=== PATIENT | female | born 1960 | race Caucasian/White ===

== ENCOUNTER → 2019-03-08 | Outpatient (CLI) | payer MEDICARE, OTHER ==
[2019-03-08 10:54] VITALS: BP 155/86; PULSE 65; RESP 16; TEMP 98.2
== END | disposition home or self-care (01) ==
LOC: PROCWHC3 10:22
PROVIDERS: ATTEND Nurse Practitioner Family
DX: Z46.82 Encounter for fitting and adjustment of non-vascular catheter (principal); C7A.090 Malignant carcinoid tumor of the bronchus and lung; C71.9 Malignant neoplasm of brain, unspecified; C22.7 Other specified carcinomas of liver
CPT/HCPCS: 96523; J1642

== ENCOUNTER → 2019-03-31 | Outpatient (CLI) | payer MEDICARE, OTHER ==
--- NOTE | 2019-03-31 16:24 | CT ---
EXAMINATION TYPE: CT ChestAbdPelvis w con DATE OF EXAM: 03/31/2019 COMPARISON: Outside study 12/15/2018 HISTORY: Hx lung ca. Pt also hx abdominal aneurysm, tumors on brain and liver CT DLP: 1061 mGycm CONTRAST: CT scan of the chest, abdomen and pelvis is performed with Oral Contrast and with IV Contrast, patien t injected with 100 mL of Isovue 300. CT Chest: LUNGS: The lungs are clear and free of infiltrate or atelectasis. Calcified granulomas noted througho ut both lung reeder. Partially calcified nodular density in the left upper lobe measuring 1 cm reflec t site of known neoplasm. Recurrent disease is not excluded. Finding is unchanged relative to prior e xamination. No pleural effusion or CT evidence of interstitial lung disease. MEDIASTINUM: Thoracic aorta is of normal caliber. The heart is not enlarged. No evidence for media stinal mass or adenopathy. HILAR STRUCTURES: Calcified hilar lymph nodes. No evidence for mass. No hilar adenopathy is apprecia jaida. OTHER: No significant abnormality. CONTRAST CT ABDOMEN AND PELVIS FINDINGS: LIVER/GB: Cholecystectomy clips noted. Approximately 3 calcified lesions are noted within the liver L 1 is identified anterior segment left hepatic lobe measuring 2.1 cm with the 2 or 3 additional lesion s seen within the left hepatic lobe measuring up to 1.8 cm. Calcified metastases are considered. Bili sanju tree is of normal caliber. PANCREAS: No inflammation. No distinct mass. SPLEEN: No splenic enlargement. No lesion seen. ADRENALS: No nodule. No thickening. KIDNEYS/BLADDER: No hydronephrosis. No nephrolithiasis. No distinct renal mass. BOWEL: Normal appendix. Normal bowel caliber. No inflammation. GENITAL ORGANS: No gross abnormality. LYMPH NODES: No greater than 1cm abdominal or pelvic lymph nodes are appreciated. AORTA: The abdominal aorta is aneurysmal and thrombosed at and just distal to the level of the renal arteries which are patent. SMA and celiac axis are patent. Thrombosed abdominal aorta and iliac vesse ls noted with reconstitution into the common femoral arteries bilaterally. Abdominal aorta measures a pproximately 3 cm. OSSEOUS STRUCTURES: No significant abnormality is seen. OTHER: No significant additional abnormality is seen. IMPRESSION: 1. Slightly calcified masses within the liver are suspicious for metastatic disease. Site of origin i s indeterminate. 2. Leriche syndrome 3. Evidence of remote granulomatous disease of the kidneys and spleen. 4. Partially calcified nodular density in the left upper lobe measuring 1 cm reflect site of known ne oplasm. Recurrent disease is not excluded. Finding is unchanged relative to prior examination.
--- NOTE | 2019-04-01 06:58 | MR ---
EXAMINATION TYPE: MR brain wo/w con DATE OF EXAM: 03/31/2019 COMPARISON: Outside brain MRI 12/14/2018 HISTORY: 58-year-old female follow-up, Lung ca, mets TECHNIQUE: Multiplanar, multisequence images of the brain and brainstem were acquired before and aft er administration of 5.5 mL IV Gadavist. Diffusion weighted imaging is performed. FINDINGS: Redemonstrated ovoid left frontal lobe mass measuring 2.7 cm AP by 1.9 cm craniocaudal by 1.6 cm wide . Previously, this measured 2.7 x 1.7 x 1.8 cm. Overall unchanged from 12/14/2018. The lesion demonstrates heterogeneous bright T1 signal and irregular peripheral enhancement. There is some susceptibility artifact along the rim of the lesion suggesting hemosiderin deposition. Mild increased T2/FLAIR signal along the posterior margin was not as well-demonstrated previously. T2/FLAIR weighted sequences otherwise shows stable mild to moderate scattered bright white matter marcus nge within the deep and periventricular regions of both cerebral hemispheres. Dural venous sinuses are patent. No additional enhancing intracranial lesions. An 8 mm wide by 5 mm craniocaudal hypoenhancing lesion centered within the pituitary gland is noted. In retrospect, this seems to been present previously as well. No evidence for acute infarction, midline shift, herniation, effacement of basal cisterns, or extra-a xial fluid collection. The ventricles and sulci are age-appropriate. Major intracranial flow voids are intact. The craniocervical junction is normal. Some trapped fluid noted within the right mastoid air cells. Globes are intact. IMPRESSION: 1. Essentially stable 2.7 x 1.9 x 1.6 cm ovoid left frontal lobe mass continues to show some intrinsi c bright T1 signal and irregular rim enhancement. There is also a hemosiderin rim suggesting old bloo d products. No mass effect or midline shift. 2. There is mild bright T2 signal along the posterior margin of the mass that could represent mild va sogenic edema, not as well-seen previously. 3. An 8 x 5 mm hypoenhancing lesion centered within the pituitary gland was present previously in ret rospect as well. Microadenoma and Rathke's cleft cyst are differential considerations. Dedicated imag ing evaluation and laboratory assessment as clinically indicated. 4. No acute intracranial abnormality seen. 5. Trapped fluid in right mastoid air cells. Correlate for any mastoid pain to exclude mastoiditis
== END | disposition home or self-care (01) ==
LOC: RADPROMAIN 13:20
PROVIDERS: ATTEND Internal Medicine Hematology & Oncology
DX: I74.09 Other arterial embolism and thrombosis of abdominal aorta (principal); R91.1 Solitary pulmonary nodule; D71 Functional disorders of polymorphonuclear neutrophils; K76.89 Other specified diseases of liver
CPT/HCPCS: 71260; 74177; 70553; J1642; A9585; Q9967

== ENCOUNTER → 2019-05-12 | Outpatient (CLI) | payer MEDICARE, OTHER ==
[~2019-05-12] MED LIST: SODIUM CHLORIDE 0.9% 500 ML 500 ML in EMPTY BAG 1 BAG IV PRN
[2019-05-12 11:04] VITALS: BP 146/80; PULSE 62; RESP 16; TEMP 97.9
== END | disposition home or self-care (01) ==
LOC: PROCWHC3 10:43
PROVIDERS: ATTEND Nurse Practitioner Family
DX: Z46.82 Encounter for fitting and adjustment of non-vascular catheter (principal); C7A.090 Malignant carcinoid tumor of the bronchus and lung; C71.9 Malignant neoplasm of brain, unspecified; C22.7 Other specified carcinomas of liver
CPT/HCPCS: 96523; J1642

== ENCOUNTER → 2019-06-23 | Outpatient (CLI) | payer MEDICARE, OTHER ==
[2019-06-23 10:38] VITALS: BP 154/91; PULSE 66; RESP 16; TEMP 97.9
== END | disposition home or self-care (01) ==
LOC: PROCWHC3 10:30
PROVIDERS: ATTEND Nurse Practitioner Family
DX: Z46.82 Encounter for fitting and adjustment of non-vascular catheter (principal)
CPT/HCPCS: 96523; J1642

== ENCOUNTER → 2019-07-13 | Outpatient (CLI) | payer MEDICARE, OTHER ==
--- NOTE | 2019-07-13 12:41 | CT ---
EXAMINATION TYPE: CT ChestAbdPelvis w con DATE OF EXAM: 07/13/2019 COMPARISON: 03/31/2019 and 12/15/2018 HISTORY: 58 year-old female follow-up Lung cancer, C34.12 TECHNIQUE: Contiguous axial scanning of the chest, abdomen, and pelvis performed with IV Contrast, pa tient injected with 100 ml mL of Isovue 300. Delayed images through the kidneys were obtained. Espino l/sagittal reconstructions performed. CT DLP: 1111 mGycm Automated exposure control for dose reduction was used. FINDINGS: CHEST: Left anterior chest wall injection port with catheter tip at the upper SVC. Heart normal size with stable small anterior pericardial effusion. Aorta normal caliber with conventional arch vessel branching anatomy. Stable 6 mm hypodense nodule left lobe of the thyroid gland. No thoracic lymphadenopathy by CT size c riteria. Numerous bilateral calcified granulomas. Irregular density within the left midlung measures 1.2 cm and is partially calcified. This previously measured 1.4 cm on 12/15/2018 and may reflect site of treated disease. No new suspicious pulmonary nodule. No consolidation or pleural effusion. ABDOMEN: Partially calcified hepatic lesions are redemonstrated, a couple along the mid hepatic dome measure t o 1.8 cm, unchanged. A lesion along the right hepatic dome measures 2.3 cm versus 2.4 cm, previously, possibly minimally smaller. Portal venous system is patent. No biliary ductal dilatation. Cholecystectomy clips. Left adrenal nodularity and thickening is stable back to 12/15/2018. Infrarenal abdominal aortic aneurysm measuring 3.3 cm with a occlusion of the abdominal aorta just be low the takeoff of the renal arteries. There is reconstitution at the distal common iliac arteries. C alcified granulomas within the spleen. Pancreas appears within normal limits. There is an elongated 9 mm calculus within the left renal pelvis. Mild urothelial thickening on the l eft. 2 nonobstructive left renal calculi measuring up to 7 mm.. 2 nonobstructive right renal calculi measuring up to 5 mm. No dilated small bowel, free fluid, or free air. No mesenteric or retroperitoneal lymphadenopathy. No significant stool burden. PELVIS: Bladder partially urine distended. Pelvic phleboliths. Uterus surgically absent. Both ovaries are vis ualized. No abnormal fluid collection in the pelvis or pelvic lymphadenopathy. BONES: Areas of serpiginous sclerosis within the left femoral head compatible with AVN. No subarticular derek apse. No osseous destructive process. IMPRESSION: 1. PARTIALLY CALCIFIED IRREGULAR DENSITY LEFT MIDLUNG MEASURES 1.2 CM, SLIGHTLY SMALLER FROM 12/15/2018 WHERE IT MEASURED 1.4 CM. CORRELATE FOR SITE OF TREATED DISEASE. 2. APPROXIMATELY 3 PARTIALLY CALCIFIED HEPATIC LESIONS REDEMONSTRATED, LARGELY STABLE. THE ONE IN THE RIGHT HEPATIC DOME MAY BE MINIMALLY SMALLER AT 2.3 CM (VERSUS 2.4 CM, PREVIOUSLY). 3. LEFT ADRENAL THICKENING AND NODULARITY IS STABLE. 4. REDEMONSTRATED LERICHE SYNDROME. 5. BILATERAL NONOBSTRUCTIVE RENAL CALCULI. NOTE THAT A 9 MM CALCULUS HAS PASSED INTO THE LEFT RENAL P ARELY. THERE IS CORRESPONDING MILD UROTHELIAL THICKENING SUGGESTING ASSOCIATED INFLAMMATION. CORRELAT E TO EXCLUDE URINARY TRACT INFECTION. 6. NUMEROUS CALCIFIED PULMONARY NODULES COMPATIBLE WITH PRIOR GRANULOMATOUS DISEASE. ADDITIONAL CALCI FIED GRANULOMAS IN THE SPLEEN. 7. LEFT FEMORAL HEAD AVN REDEMONSTRATED. NO SUBARTICULAR COLLAPSE.
--- NOTE | 2019-07-13 12:54 | MR ---
EXAMINATION TYPE: MR brain wo/w con DATE OF EXAM: 07/13/2019 COMPARISON: Prior MRI brain March 31, 2019 and outside study December 14, 2018. HISTORY: Headaches, lung ca TECHNIQUE: Multiplanar, multisequence images of the brain and brainstem is performed without and with IV contras t, utilizing 5.5 mL intravenous Gadavist . FINDINGS: Diffusion weighted images demonstrate no evidence of a recent infarct or other diffusion ab normality. There is no worrisome extra-axial fluid collection. The ventricular system and cisternal spaces remain normal in size and appearance. The brain volume is age appropriate. Scattered foci of T2 hyperintensity throughout the white matter most prominent periventricular levels is again seen. Midline structures demonstrate normal morphology. The craniocervical junction appears within normal limits. The dural venous sinuses remain patent. The visualized sinuses are clear and the globes are intact. Persistent opacity or fluid signal right mastoid air cells. Persistent oval heterogeneous rim-enhancing left frontal mass measuring approximately 2.0 cm cranioca udal dimension coronal image 27 x 2.3 cm AP diameter by 2.2 cm transversely axial image 43. Lesion sh ows T1 hyperintensity and fairly isointense to ruiz matter on T2-weighted images with persistent susc eptibility artifact along the rim. Some adjacent vasogenic edema surrounding deeper and posterior tis josephine FLAIR image 18 is more prominent versus last 2 studies. Persistent ovoid area of nonenhancement p osterior inferior sella turcica sagittal image 79 for reference is redemonstrated. No new enhancing m asses are present. IMPRESSION: Fairly stable size nonspecific left frontal rim-enhancing mass. Increasing local mass eff ect or adjacent vasogenic edema is noted. No new enhancing lesions are seen.
== END | disposition home or self-care (01) ==
LOC: RADMRIMAIN 09:16
PROVIDERS: ATTEND Internal Medicine Hematology & Oncology
DX: N20.0 Calculus of kidney (principal); J98.4 Other disorders of lung; D73.89 Other diseases of spleen; K76.9 Liver disease, unspecified; C34.12 Malignant neoplasm of upper lobe, left bronchus or lung; Z88.1 Allergy status to other antibiotic agents
CPT/HCPCS: 70553; 71260; 74177

== ENCOUNTER → 2019-08-13 | Outpatient (CLI) | payer MEDICARE, OTHER ==
[2019-08-13 11:13] VITALS: BP 156/90; PULSE 54; RESP 16; TEMP 98.3
== END | disposition home or self-care (01) ==
LOC: PROCWHC3 10:36
PROVIDERS: ATTEND Nurse Practitioner Family
DX: C71.9 Malignant neoplasm of brain, unspecified (principal); C7A.090 Malignant carcinoid tumor of the bronchus and lung; C22.7 Other specified carcinomas of liver; Z46.82 Encounter for fitting and adjustment of non-vascular catheter
CPT/HCPCS: 96523

== ENCOUNTER → 2019-09-24 | Outpatient (CLI) | payer MEDICARE, OTHER ==
[2019-09-24 11:18] VITALS: BP 127/60; PULSE 56; RESP 16; TEMP 98.2
== END | disposition home or self-care (01) ==
LOC: PROCWHC3 10:45
PROVIDERS: ATTEND Nurse Practitioner Family
DX: Z46.82 Encounter for fitting and adjustment of non-vascular catheter (principal); C7A.090 Malignant carcinoid tumor of the bronchus and lung; C71.9 Malignant neoplasm of brain, unspecified; C22.7 Other specified carcinomas of liver
CPT/HCPCS: 96523; J1642

== ENCOUNTER → 2019-10-18 | Outpatient (CLI) | payer MEDICARE, OTHER ==
--- NOTE | 2019-10-18 15:54 | CT ---
EXAMINATION TYPE: CT ChestAbdPelvis w con DATE OF EXAM: 10/18/2019 COMPARISON: 07/13/2019 and 03/31/2019 HISTORY: 59 year-old female history of Lung cancer TECHNIQUE: Contiguous axial scanning of the chest, abdomen, and pelvis performed with IV Contrast, pa tient injected with 100 mL of Isovue 300. Delayed images through the kidneys were obtained. Coronal/s agittal reconstructions performed. CT DLP: 618.20 mGycm Automated exposure control for dose reduction was used. FINDINGS: CHEST: Left anterior chest wall injection port with catheter tip at the upper SVC. Heart normal size with stable small anterior pericardial effusion. Aorta normal caliber with conventional arch vessel branching anatomy. Stable 6 mm hypodense nodule left lobe of the thyroid gland. No thoracic lymphadenopathy by CT size criteria. Numerous bilateral calcified granulomas. Redemonstrated is irregular, partially calcified density wit hin the left midlung measuring 1.2 cm, unchanged from prior. No new suspicious pulmonary nodule. No consolidation or pleural effusion. ABDOMEN: 3 partially calcified hepatic lesions are redemonstrated, couple along the left hepatic dome measurin g up to 1.8 cm and one within the right liver lobe. This is the largest measuring 2.3 cm, unchanged. Portal venous system is patent. No biliary ductal dilatation. Cholecystectomy clips. Left adrenal nodularity and thickening remains unchanged. Infrarenal abdominal aortic aneurysm measuring 3.3 cm with redemonstration of occlusion of the abdomi nal aorta just below the takeoff of the renal arteries. There is reconstitution at the distal externa l iliac arteries. Calcified granulomas within the spleen. Pancreas appears within normal limits. The lung gated calcification in the left renal pelvis has increased in size now measuring 1.3 cm vers us 9 mm, previously. Continued urothelial thickening now with mild proximal left ureteral prominence. Unable to exclude a stricture at the UPJ, reference axial image 69 and 70. Additional nonobstructive bilateral renal calculi measuring up to 1 cm on the left and 1.1 cm on the right. No dilated small bowel, free fluid, or free air. No mesenteric or retroperitoneal lymphadenopathy. The cecum is low hanging in the right side of the pelvis with oral contrast progressed to this level. Scattered [id number] stool. No pericolonic inflammatory change. PELVIS: Bladder partially urine distended. Pelvic phleboliths. Uterus surgically absent. Right ovary not verna rly delineated from adjacent bowel. No abnormal fluid collection in the pelvis or pelvic lymphadenopa thy. BONES: Areas of serpiginous sclerosis within the left femoral head compatible with AVN. No subarticular derek apse. No osseous destructive process. IMPRESSION: 1. STABLE 1.2 CM PARTIALLY CALCIFIED LEFT MIDLUNG NODULE, LIKELY SITE OF TREATED DISEASE. BACKGROUND OF PRIOR GRANULOMATOUS DISEASE. 2. 3 PARTIALLY CALCIFIED HEPATIC LESIONS MEASURING UP TO 2.3 CM ARE ALSO UNCHANGED. 3. LEFT ADRENAL THICKENING AND NODULARITY REMAINS STABLE. 4. REDEMONSTRATED LERICHE SYNDROME. 5. THE PREVIOUS CALCULUS IN THE LEFT RENAL PELVIS HAS INCREASED TO 1.2 CM AND THERE IS PERSISTING URO THELIAL THICKENING THAT COULD BE REACTIVE DUE TO INFLAMMATION OR COULD REPRESENT URINARY TRACT INFECT ION. UNABLE TO EXCLUDE THE DEVELOPMENT OF A FOCAL UPJ STENOSIS THE APPEARANCE OF SOME POSSIBLE NARROW ING HERE. 6. LEFT FEMORAL HEAD AVN REDEMONSTRATED. NO SUBARTICULAR COLLAPSE.
== END | disposition home or self-care (01) ==
LOC: RADPROMAIN 12:06
PROVIDERS: ATTEND Internal Medicine Hematology & Oncology
DX: D71 Functional disorders of polymorphonuclear neutrophils (principal); R91.1 Solitary pulmonary nodule; K76.9 Liver disease, unspecified; E27.8 Other specified disorders of adrenal gland; I74.09 Other arterial embolism and thrombosis of abdominal aorta; N20.0 Calculus of kidney; N39.8 Other specified disorders of urinary system; M87.852 Other osteonecrosis, left femur; C34.12 Malignant neoplasm of upper lobe, left bronchus or lung; Z88.1 Allergy status to other antibiotic agents
CPT/HCPCS: 71260; 74177; J1642; Q9967 ×2

== ENCOUNTER → 2019-10-18 | Outpatient (CLI) | payer MEDICARE, OTHER ==
--- NOTE | 2019-10-18 14:17 | MR ---
EXAMINATION TYPE: MR brain wo/w con DATE OF EXAM: 10/18/2019 COMPARISON: 07/13/2019 HISTORY: Lung CA, mets TECHNIQUE: Multiplanar, multisequence images of the brain and brainstem is performed without and with IV contras t, utilizing 5.5 mL intravenous Gadavist . FINDINGS: There is redemonstration of a T1 precontrast hyperintense and T2, isointense intra-axial le ft frontal lobe mass with peripheral T2 hypointensity indicating rim hemosiderin deposition. This is also rim-enhancing and measures 2.3 x 2.2 x 2.3 cm and transverse by anterior posterior by craniocaud al dimension when measured in a similar fashion to the prior exam of 07/13/2019. There is only minimal surrounding vasogenic edema seen. Diffusion weighted images demonstrate no evidence of a recent infarct or other diffusion abnormality. There is no extra-axial fluid. Old foci of T2/FLAIR hyperintensity are scattered throughout the per iventricular and subcortical white matter. The ventricular system and cisternal spaces are normal in size and appearance. The brain volume is age appropriate. Midline structures demonstrate normal morphology. The craniocervical junction appears within normal limits. The dural venous sinuses appear patent. The globes are intact. There is partial opacification of the right mastoid air cells. Left mastoid air cells are well aerated. Scant mucosal thickening is seen in the ethmoid sinuses. Remaining paranasal sinuses are well aerated. Left vertebral artery is noted to be dominant. Incidentally noted leftward nasal septal deviation. IMPRESSION: Stable size of the rim-enhancing left frontal metastatic lesion with similar mild surroun ding vasogenic edema. No progression in mass effect. No new enhancing intracranial lesions.
== END | disposition home or self-care (01) ==
LOC: RADMRIMAIN 12:00
PROVIDERS: ATTEND Internal Medicine Hematology & Oncology
DX: C71.9 Malignant neoplasm of brain, unspecified (principal); C34.12 Malignant neoplasm of upper lobe, left bronchus or lung
CPT/HCPCS: 70553; A9585

== ENCOUNTER → 2019-11-29 | Outpatient (CLI) | payer MEDICARE, OTHER ==
[2019-11-29 11:12] VITALS: BP 135/84; PULSE 55; RESP 18; TEMP 98.2
== END | disposition home or self-care (01) ==
LOC: PROCWHC3 10:49
PROVIDERS: ATTEND Nurse Practitioner Family
DX: Z46.82 Encounter for fitting and adjustment of non-vascular catheter (principal); C7A.090 Malignant carcinoid tumor of the bronchus and lung; C71.9 Malignant neoplasm of brain, unspecified; C22.7 Other specified carcinomas of liver; E31.20 Multiple endocrine neoplasia [MEN] syndrome, unspecified
CPT/HCPCS: 96523; J1642

== ENCOUNTER → 2020-01-10 | Outpatient (CLI) | payer MEDICARE, OTHER ==
[2020-01-10 11:15] VITALS: BP 154/85; PULSE 65; RESP 18; TEMP 98.6
== END | disposition home or self-care (01) ==
LOC: PROCWHC3 10:56
PROVIDERS: ATTEND Nurse Practitioner Family
DX: Z46.82 Encounter for fitting and adjustment of non-vascular catheter (principal); C7A.090 Malignant carcinoid tumor of the bronchus and lung; C71.9 Malignant neoplasm of brain, unspecified; C22.7 Other specified carcinomas of liver
CPT/HCPCS: 96523; J1642

== ENCOUNTER → 2020-02-14 | Outpatient (CLI) | payer MEDICARE, OTHER ==
--- NOTE | 2020-02-14 12:07 | MR ---
EXAMINATION TYPE: MR brain wo/w con DATE OF EXAM: 02/14/2020 11:57 AM COMPARISON: 10/18/2019 HISTORY: Lung cancer / Known Brain mets, Follow up Study CONTRAST: Patient received 5.5 mL intravenous Gadavist gadolinium contrast. Multiplanar and multispin-echo imaging of the brain was performed . Pre and post contrast enhanced i mages are obtained. The ventricles, basal cisterns and sulci overlying the cerebral convexities are mildly enlarged. There is evidence of mild periventricular white matter ischemic demyelination. Remote deep white matter insults are also noted. No acute edema is seen on diffusion weighted imaging. There is no evidence for midline shift or mass effect. Acute intracranial hemorrhage or extra-axial collection is not evident. Left frontal lesion is again noted with a peripheral rim enhancement and currently measures approxima tely 2.3 x 1.7 cm versus 2.3 x 2.2 cm previously. There is stable bulbous appearance to the right por tion of the saima inferiorly measuring 1.1 cm with vague enhancement. This may reflect an additional l esion unchanged from prior examination. The paranasal sinuses and mastoid air cells are well-aerated. IMPRESSION: 1. Essentially stable left frontal lesion as well as suspected lesion involving the right portion of the saima as discussed above.
== END | disposition home or self-care (01) ==
LOC: RADMRIMAIN 10:55
PROVIDERS: ATTEND Internal Medicine Hematology & Oncology
DX: G93.89 Other specified disorders of brain (principal); C34.12 Malignant neoplasm of upper lobe, left bronchus or lung
CPT/HCPCS: 70553; A9585

== ENCOUNTER → 2020-02-14 | Outpatient (CLI) | payer MEDICARE, OTHER ==
--- NOTE | 2020-02-14 15:04 | CT ---
EXAMINATION TYPE: CT ChestAbdPelvis w con DATE OF EXAM: 02/14/2020 COMPARISON: Prior CT 10/18/2019 HISTORY: Lung cancer. CT DLP: 490.3 mGycm Automated exposure control for dose reduction was used. CONTRAST: CT scan of the chest, abdomen and pelvis is performed with Oral Contrast and with IV Contrast, patien t injected with 100 mL of Isovue M300. FINDINGS: LUNGS: The lungs are remarkable for stable nodularity, probable old granulomatous disease. There is no pleural effusion or pneumothorax seen. The tracheobronchial tree is patent. MEDIASTINUM: There are no greater than 1 cm hilar or mediastinal lymph nodes. No pericardial effusi on is seen. AORTA: No significant interval change is seen, infrarenal abdominal aorta is occluded as on prior. OTHER: No additional significant abnormality is seen. LIVER/GB: No significant interval change is appreciated. There are calcified foci within the liver as on prior. Patient is post cholecystectomy. PANCREAS: No significant abnormality is seen. SPLEEN: No significant abnormality is seen. ADRENALS: No significant interval change is seen. KIDNEYS: No significant interval change is seen. There is abnormal appearance of the renal pelvis, th ickening of the urothelium, there is a calcified stone present in the renal pelvis, nonobstructive re nal calculi are present bilaterally as on prior. REPRODUCTIVE ORGANS: No gross abnormality seen. BOWEL: No significant abnormality is seen. FREE AIR: No Free Air visible. ASCITES: None seen. RETROPERITONEAL ADENOPATHY: No retroperitoneal adenopathy is seen. LYMPH NODES: No greater than 1 cm abdominal or pelvic lymph nodes are appreciated. URINARY BLADDER: No significant abnormality is seen. PELVIC ADENOPATHY: None visualized. OSSEOUS STRUCTURES: No significant interval change is seen. IMPRESSION: Essentially stable exam.
== END | disposition home or self-care (01) ==
LOC: RADPROMAIN 11:02
PROVIDERS: ATTEND Internal Medicine Hematology & Oncology
DX: C34.12 Malignant neoplasm of upper lobe, left bronchus or lung (principal); Z88.1 Allergy status to other antibiotic agents
CPT/HCPCS: 71260; 74177; J1642; Q9967 ×2; 70553

== ENCOUNTER → 2020-06-12 | Outpatient (CLI) | payer MEDICARE, OTHER ==
[2020-06-12 12:00] LABS: African American GFR (CKD) >90 (>60 ml/min/1.73 sqM); Blood Urea Nitrogen 12 mg/dL (7-17); Non-African American GFR(CKD) 84 (>60 ml/min/1.73 sqM)
--- NOTE | 2020-06-13 21:42 | CT ---
EXAMINATION TYPE: CT ChestAbdPelvis w con DATE OF EXAM: 06/12/2020 COMPARISON: CT chest abdomen pelvis 02/14/2020 HISTORY: Lung cancer. Brain metastases. CT DLP: 459.90 mGycm Automated exposure control for dose reduction was used. CONTRAST: CT scan of the chest, abdomen and pelvis is performed with Oral Contrast and with IV Contrast, patien t injected with 100 ml mL of Isovue 300. FINDINGS: LUNGS: Numerous calcified pulmonary nodules redemonstrated. No new concerning parenchymal mass or nod ule identified. No pleural effusion. No pneumothorax. The tracheobronchial tree is patent. MEDIASTINUM/SOFT TISSUES: Left-sided MediPort. No axillary, hilar, or mediastinal lymphadenopathy gre ater than 1 cm. Calcified nonenlarged mediastinal and bihilar lymph nodes. Cardiac size is normal. Ca lcified coronary artery disease. No pericardial effusion. No thoracic aortic aneurysm. LIVER: Redemonstrated coarse round calcified lesion of the liver. No new hepatic lesion. BILIARY SYSTEM: Status post cholecystectomy. No intrahepatic or extrahepatic biliary ductal dilatatio n. PANCREAS: Normal. SPLEEN: Calcified granulomas of the spleen. ADRENALS: There is unchanged thickening of the left adrenal gland. Right adrenal gland normal. KIDNEYS: Bilateral renal calculi are redemonstrated. There is no right hydronephrosis. There is redem onstrated 13 mm calculus within the left renal pelvis with urothelial thickening of the renal collect ing system and proximal left ureter, and mild to moderate left hydronephrosis. BOWEL: No obstruction or thickening. PERITONEUM: No pneumoperitoneum. No free fluid. LYMPH NODES: No lymphadenopathy. PELVIS: Normal urinary bladder. Status post hysterectomy. VASCULATURE: There is unchanged occluded multifocal infrarenal abdominal aortic aneurysm, measuring up to 2.5 x 3.3 cm AP and transverse at the level of the renal arteries (4:65), and the distal infrar enal abdominal aorta measures up to 2.7 x 2.8 cm AP and transverse (4:73). MUSCULOSKELETAL: Sclerotic foci of right rib 7 unchanged. Avascular necrosis of the left femoral hea d redemonstrated. IMPRESSION: 1. Redemonstrated calcified pulmonary nodules. No new pulmonary nodules or lymphadenopathy of the ch est. 2. Unchanged calcified lesions of the liver. 3. Unchanged left adrenal thickening. 4. Bilateral nephrolithiasis. Redemonstrated 13 mm calculus within the left renal pelvis, with persi stent urothelial thickening and mild to moderate left hydronephrosis. 5. Redemonstrated Leriche syndrome.
== END | disposition home or self-care (01) ==
LOC: RADCTMAIN 09:35
PROVIDERS: ATTEND Internal Medicine Hematology & Oncology
DX: K76.89 Other specified diseases of liver (principal); E27.8 Other specified disorders of adrenal gland; N20.0 Calculus of kidney; C34.12 Malignant neoplasm of upper lobe, left bronchus or lung; Z88.1 Allergy status to other antibiotic agents
CPT/HCPCS: 82565; 84520; 71260; 74177; 36415; Q9967; 70553

== ENCOUNTER → 2020-06-12 | Outpatient (CLI) | payer MEDICARE, OTHER ==
--- NOTE | 2020-06-12 11:01 | MR ---
EXAMINATION TYPE: MR brain wo/w con DATE OF EXAM: 06/12/2020 COMPARISON: 05/16/2020, 07/13/2019, 03/31/2019 HISTORY: Lung cancer, brain mets TECHNIQUE: Multiplanar, multisequence images of the brain and brainstem is performed without and with IV contras t, utilizing 5 mL intravenous Gadavist . FINDINGS: Diffusion weighted images demonstrate no evidence of a recent infarct or other diffusion ab normality. There is moderate generalized degenerative change is confluent and focal areas of abnormal signal see n throughout the white matter of both cerebral hemispheres in a nonspecific pattern but most vascular ischemia. There is dolichoectasia of the vertebral basilar system. Midline structures demonstrate normal morphology. The craniocervical junction appears within normal limits. Post contrast images demonstrate no abnormal enhancement. The dural venous sinuses appear pa tent. Findings compatible with chronic sinusitis and the globes are intact. Changes of chronic mastoi ditis are noted. Left frontal lesion is again noted with a peripheral rim enhancement and currently measures approxima tely 2.3 x 1.7 cm versus 2.3 x 1.7cm previously. High signal seen on T1 imaging with peripheral low s ignal on T2 imaging suggest hemorrhagic component of the suspected neoplasm. Findings are stable from multiple prior exams. . Previously noted pontine area of enhancement is less well-seen on today's no additional areas of en hancement are noted. IMPRESSION: 1. Stable left frontal lesion with suspected hemorrhagic component unchanged from prior exam. 2. Previous noted pontine lesion as well as less well-seen on today's exam with no definitive lesion seen. 3. Degenerative and nonspecific white matter changes most typical of remote white matter ischemia.
== END | disposition home or self-care (01) ==
LOC: RADMRIMAIN 09:31
PROVIDERS: ATTEND Internal Medicine Hematology & Oncology
DX: C34.12 Malignant neoplasm of upper lobe, left bronchus or lung (principal); C79.31 Secondary malignant neoplasm of brain; G31.9 Degenerative disease of nervous system, unspecified; R90.89 Other abnormal findings on diagnostic imaging of central nervous system
CPT/HCPCS: 70553; A9585

== ENCOUNTER → 2020-10-18 | Outpatient (CLI) | payer MEDICARE, OTHER ==
--- NOTE | 2020-10-19 13:40 | MM ---
Reason for exam: screening (asymptomatic). Last mammogram was performed 2 years and 7 months ago. History: Patient is postmenopausal and history of other cancer. Benign stereotactic core biopsy of the left breast, January 10, 2003. Core biopsy of the left breast. Physical Findings: A clinical breast exam by your physician is recommended on an annual basis and results should be correlated with mammographic findings. MG Screening Mammo w CAD Bilateral CC and MLO view(s) were taken. Prior study comparison: April 03, 2018, mammogram, performed at [facility]. The breast tissue is heterogeneously dense. This may lower the sensitivity of mammography. Benign appearing bilateral calcifications. Previous mammotome biopsy in the left breast. No significant changes when compared with prior studies. ASSESSMENT: Benign, BI-RAD 2 RECOMMENDATION: Routine screening mammogram of both breasts in 1 year.
== END | disposition home or self-care (01) ==
LOC: RADMAMWWP 07:11
PROVIDERS: ATTEND Family Medicine
DX: Z12.31 Encounter for screening mammogram for malignant neoplasm of breast (principal)
CPT/HCPCS: 77067

== ENCOUNTER → 2020-12-11 | Outpatient (CLI) | payer MEDICARE, OTHER ==
--- NOTE | 2020-12-11 12:44 | CT ---
EXAMINATION TYPE: CT ChestAbdPelvis w con DATE OF EXAM: 12/11/2020 COMPARISON: Most recent CT June 12, 2020 and older studies HISTORY: Lung CA CT DLP: 501.20 mGycm. Automated Exposure Control for Dose Reduction was Utilized. CONTRAST: CT scan of the thorax, abdomen and pelvis is performed with oral and with IV Contrast, patient inject ed with 100ml mL of Isovue 300. FINDINGS: LUNGS: Scattered stable calcified bilateral pulmonary nodules and/or granulomas including largest par tially calcified lesion left lower lung axial image 34. No new or enlarging noncalcified pulmonary no dules. No pleural effusion or pneumothorax seen. MEDIASTINUM: There are no new greater than 1 cm noncalcified hilar or mediastinal lymph nodes. Stable prominent but calcified bilateral hilar lymph nodes.1 tiny pericardial effusion is stable. No cardi omegaly. OTHER: Stable low dense left thyroid nodule axial image 7. Stable left subclavian Mediport catheter. LIVER/GB: Stable hyperdense or calcified treated liver lesions. No new suspicious hypodense lesions. Cholecystectomy clips. PANCREAS: No significant abnormality is seen. SPLEEN: Scattered tiny calcifications throughout the spleen. ADRENALS: Stable slight thickening left adrenal gland. KIDNEYS: Central parapelvic cysts left kidney redemonstrated. Persistent central 16 mm calculus left kidney axial image 71. Symmetric cortical medullary uptake and excretion with improved left-sided hyd ronephrosis from prior BOWEL: Low lying cecum into the right pelvis. Oral contrast does not reach glottic level making evalu ation of distal bowel slightly suboptimal. No suspicious small or large bowel dilatation. GENITAL ORGANS: Uterus is surgically absent. LYMPH NODES: No new greater than 1cm abdominal or pelvic lymph nodes are appreciated. OSSEOUS STRUCTURES: Sclerotic right mid rib redemonstrated. OTHER: Ectatic and aneurysmal abdominal aorta with complete occlusion redemonstrated. Conclusion into iliac arterial branches with some reconstitution of the common femoral level is redemonstrated. 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 No cortical bony fragments. IMPRESSION: Evidence of old granulomatous disease. No new or enlarging mass or adenopathy to suggest active neoplastic recurrence. Completely occluded aortoiliac arterial system redemonstrated.
== END | disposition home or self-care (01) ==
LOC: RADPROMAIN 09:25
PROVIDERS: ATTEND Internal Medicine Hematology & Oncology
DX: C34.90 Malignant neoplasm of unspecified part of unspecified bronchus or lung (principal)
CPT/HCPCS: 71260; 74177; J1642; Q9967

== ENCOUNTER → 2021-04-17 | Outpatient (CLI) | payer MEDICARE, OTHER ==
--- NOTE | 2021-04-17 12:04 | MR ---
EXAMINATION TYPE: MR brain wo/w con DATE OF EXAM: 04/17/2021 COMPARISON: HISTORY: Lung cancer. TECHNIQUE: Multiplanar, multisequence images of the brain and brainstem is performed without and with IV contras t, utilizing 5 mL intravenous Gadavist . FINDINGS: Diffusion weighted images demonstrate no evidence of a recent infarct or other diffusion ab normality. There is a 2.3 x 2.0 x 2.0 cm heterogeneous mass in the left frontal lobe. Previous measu red 2.3 x 1.7 cm. Minimal differences in measurement likely technique related. Therefore, Given diffe rences in technique the lesion appears to be essentially stable. Hyperdensity T1 noncontrast suggest hemorrhagic mass with the limiting artifact seen on the periphery of the lesion. Midline structures demonstrate normal morphology. The craniocervical junction appears within normal limits. The dural venous sinuses appear patent. There is some mild generalized degenerative change with areas the white matter both cerebral hemisphe res most typical remote microvascular ischemia. Changes of mild right mastoiditis and chronic sinusitis. Orbits symmetric. IMPRESSION: 1. Stable left frontal lesion with suspected hemorrhagic component unchanged from prior exam. 2. Degenerative and nonspecific white matter changes most typical of remote white matter ischemia.
== END | disposition home or self-care (01) ==
LOC: RADMRIMAIN 10:20
PROVIDERS: ATTEND Internal Medicine Hematology & Oncology
DX: C34.90 Malignant neoplasm of unspecified part of unspecified bronchus or lung (principal); G93.9 Disorder of brain, unspecified; G31.9 Degenerative disease of nervous system, unspecified
CPT/HCPCS: 70553; A9585

== ENCOUNTER → 2021-04-18 | Outpatient (CLI) | payer MEDICARE, OTHER ==
--- NOTE | 2021-04-19 14:52 | CT ---
EXAMINATION TYPE: CT ChestAbdPelvis w con DATE OF EXAM: 04/18/2021 INDICATION: Lung cancer, follow up COMPARISON: 12/11/2020 CT DLP: 437.6 mGycm CONTRAST: Performed with Oral Contrast and with IV Contrast, patient injected with 100 mL of Isovue 300. TECHNIQUE: Axial images at 5 mm thick sections. Reconstructed images in the coronal plane. Delayed images through the kidneys. FINDINGS: CT CHEST: There is a stable hypodensity within the left lobe thyroid. There is a small area of pneumonitis in the posterior medial right upper lung field. Series 4 image 1 3. There is a 0.3 cm nodule within the left mid lung. Series 4 image 27. Some adjacent streak atelect asis may be present. There is an irregular density in the major fissure on the right measuring 0.5 cm . Series 4 image 30. Small nodule may be adjacent. There is a punctate nodule in the posterolateral s uperior segment right lower lobe. Series 4 image 34. There is an irregular opacity within the lingula measuring 1.8 x 1.3 cm. Series 4 image 35. There is a small 0.5 cm nodule within the lateral right m idlung. Series 4 image 43 0.4 cm nodules in the posterior right lung base. Series 4 image 50. Calcified granuloma is within the lingula, series 4 image 137. Calcified granuloma is. In the posteri or lateral right lung. Series 4 image 43 No enlarged mediastinal or hilar adenopathy is evident. The ascending aorta diameter at the level of the main pulmonary artery is 3.5 cm. The main pulmonary artery diameter at the bifurcation is 2.[address] ABDOMEN: Liver: Normal Spleen: Normal Pancreas: Normal Adrenal glands: The adrenal glands are normal. Gallbladder: Surgically absent Kidneys: No masses are evident. No hydronephrosis is present. No cysts are present. Delayed images were obtained through the kidneys, which remain unremarkable. Aorta: Vascular calcification is within the aorta. There is a 3.3 cm fusiform prominence mid abdomin al aorta. Vascular contrast is evident within the aorta to the level the renal arteries. No contrast beyond the renal arteries and aorta is evident. There appears to be collateral flow reconstituting il iac vessels. Inferior vena cava: Normal. CT PELVIS: Loops of bowel within the abdomen and pelvis are normal. There are loops of bowel which are incom pletely distended or lack oral contrast limiting their evaluation. Appendix: Not visualized Urinary bladder: Normal. Genitourinary structures: Uterus and ovaries are not identified. Osseous structures: No suspicious lytic or sclerotic lesions. IMPRESSIONS: 1. Leriche syndrome. The aorta is obstructed below the renal arteries but iliac vessels are reconstit uted within the pelvis. 2. Multiple bilateral lung nodules and masses, stable.
== END | disposition home or self-care (01) ==
LOC: RADPROMAIN 10:11
PROVIDERS: ATTEND Internal Medicine Hematology & Oncology
DX: C78.01 Secondary malignant neoplasm of right lung (principal); I74.09 Other arterial embolism and thrombosis of abdominal aorta; C78.02 Secondary malignant neoplasm of left lung
CPT/HCPCS: 71260; 74177; J1642; Q9967 ×2

== ENCOUNTER → 2022-03-26 | Outpatient (CLI) | payer MEDICARE, OTHER ==
--- NOTE | 2022-03-26 13:26 | BD ---
EXAMINATION TYPE: Axial Bone Density DATE OF EXAM: 03/26/2022 COMPARISON: NONE CLINICAL HISTORY: 61 years year old Female. ICD-10 CODE: Z78.[address] Height: 5' Weight: 109 FRAX RISK QUESTIONS: History of Fracture in Adulthood: Secondary Osteoporosis: Current Tobacco Use: y RISK FACTORS HISTORY OF: Postmenopausal woman: y MEDICATIONS: Additional Medications: cholesterol,copd, Additional History: lung cancer 2014, brain and liver, radiation,chemotherapy EXAM MEASUREMENTS: Bone mineral densitometry was performed using the [employer] System. Bone mineral density as measured about the Lumbar spine is: ----- L1-L4(G/cm2): 0.974 T Score Values are as follows: ----- L1: 0.841 ----- L2: 0.978 ----- L3: 1.043 ----- L4: 1.003 ----- L1-L4: 00.974 Bone mineral density about the R hip (g/cm2): 0.809 Bone mineral density about the L hip (g/cm2): 0.739 T Score values are as follows: -----R Neck: -1.6 -----L Neck: -2.1 -----R Total: -1.9 -----L Total: -2.1 FRAX%s: The graph provided illustrates a 10.2% chance for a major osteoporotic fx and a 2.6% chance f or the hips probability for fx in 10 years time. IMPRESSION: Osteopenia (T Score between -2.5 and -1). There is slightly increased risk of fracture and the patient may be considered for treatment. Re-Screen 2-5 years. NOTE: T-SCORE=SD OF THE YOUNG ADULT MEAN.
--- NOTE | 2022-03-27 19:36 | MM ---
Reason for Exam: Screening (asymptomatic). Last mammogram was performed 1 year(s) and 5 month(s) ago. Patient History: Menarche at age 12. First Full-Term at age 24. Left ovary removed at age 40. Right ovary removed at age 40. Hysterectomy at age 40. Postmenopausal. Other cancer. Core Biopsy on the Left side. 01/10/2003, Benign Stereotactic Core Biopsy on the left side. Risk Values: Sera 5 year model risk: 2.0%. NCI Lifetime model risk: 9.5%. Prior Study Comparison: 12/13/2002 Left Special View Mammogram, [place]. 04/03/2018 Screening Mammogram, [facility]. 10/18/2020 Bilateral Screening Mammogram, [facility]. Tissue Density: The breast tissue is heterogeneously dense. This may lower the sensitivity of mammography. Findings: Analyzed By CAD. Benign oil cyst calcifications on both sides. Microclip left breast from prior biopsy. Injection port posteriorly on the left. No significant change from prior exams. Overall Assessment: Benign, BI-RAD 2 Management: Screening Mammogram of both breasts in 1 year. 1. Patient should continue monthly self breast exams. 2. A clinical breast exam by your physician is recommended on an annual basis. 3. This exam should not preclude additional follow-up of suspicious palpable abnormalities. Electronically signed and approved by: Malachi Tong M.D. Radiologist
== END | disposition home or self-care (01) ==
LOC: RADMAMWWP 10:00
PROVIDERS: ATTEND Family Medicine
DX: Z12.31 Encounter for screening mammogram for malignant neoplasm of breast (principal); Z78.0 Asymptomatic menopausal state; M85.89 Other specified disorders of bone density and structure, multiple sites; Z85.89 Personal history of malignant neoplasm of other organs and systems
CPT/HCPCS: 77063; 77067; 77080

== ENCOUNTER → 2022-05-06 | Outpatient (CLI) | payer MEDICARE, OTHER ==
[2022-05-06 12:39] LABS: African American GFR (CKD) >90 (>60 ml/min/1.73 sqM); Blood Urea Nitrogen 14 mg/dL (7-17); Non-African American GFR(CKD) 86 (>60 ml/min/1.73 sqM)
--- NOTE | 2022-05-06 16:01 | CT ---
EXAMINATION TYPE: CT ChestAbdPelvis w con DATE OF EXAM: 05/06/2022 COMPARISON: Most recent CT November 12, 2021 and older studies HISTORY: obs for mets hx of lung, liver and brain ca CT DLP: 1108 mGycm. Automated Exposure Control for Dose Reduction was Utilized. CONTRAST: CT scan of the thorax, abdomen and pelvis is performed with oral and with IV Contrast, patient inject ed with 70 mL of Isovue 300. FINDINGS: LUNGS: Scattered stable calcified bilateral pulmonary nodules and/or granulomas including largest par tially calcified lesion left lower lung axial image 36 on the current study. No new or enlarging gre ater than 5 mm noncalcified pulmonary nodules. No pleural effusion or pneumothorax seen. MEDIASTINUM: There are no new greater than 1 cm noncalcified hilar or mediastinal lymph nodes. Stable prominent but calcified bilateral hilar lymph nodes. Tiny pericardial effusion is stable. No cardio megaly. Coronary artery calcification again seen. OTHER: Redemonstration of subcentimeter low dense left thyroid nodule axial image 11. Stable left augustin bclavian Mediport catheter. LIVER/GB: Stable hyperdense or calcified treated liver lesions. No new suspicious hypodense lesions. Cholecystectomy clips are redemonstrated. No new biliary dilatation. PANCREAS: No significant abnormality is seen. SPLEEN: Scattered calcifications throughout the spleen redemonstrated consistent with product of old granulomatous disease. ADRENALS: Stable slight thickening left adrenal gland. KIDNEYS: There is redemonstration of 16mm calculus in the proximal left ureter coronal image 56 causi ng persistent moderate to severe left-sided hydronephrosis but no delayed excretion. Position unchang ed from prior. A new 10 mm calculus seen just superior to this coronal image 56. Persistent 8 mm nono bstructing calculus lower pole left kidney axial image 75 and 8 mm calculus lower pole right kidney o n axial image 75 BOWEL: Low lying cecum into the right pelvis is redemonstrated. Oral contrast does not reach colonic level making evaluation of distal bowel slightly suboptimal. No suspicious small or large bowel dila tation. GENITAL ORGANS: Uterus is surgically absent. Scattered bilateral pelvic phleboliths are redemonstrate d. LYMPH NODES: No new greater than 1cm abdominal or pelvic lymph nodes are appreciated. OSSEOUS STRUCTURES: Sclerotic lateral right mid rib redemonstrated. There is curvilinear sclerosis in the left femoral head consistent with avascular necrosis redemonstrated. OTHER: Ectatic and aneurysmal abdominal aorta with complete occlusion redemonstrated near the level o f the renal arteries. Occlusion into iliac arterial branches with some reconstitution at the common f emoral level bilaterally is redemonstrated. IMPRESSION: No new or enlarging mass or adenopathy to suggest active neoplastic recurrence. Completel y occluded aortoiliac arterial system redemonstrated. Redemonstration of moderate to severe left-side d hydronephrosis without delayed excretion due to obstructing 16mm proximal left ureter calculus.
--- NOTE | 2022-05-06 22:06 | MR ---
EXAMINATION TYPE: MR brain wo/w con DATE OF EXAM: 05/06/2022 COMPARISON: Prior MRI November 12, 2021 and older studies. HISTORY: Lung ca TECHNIQUE: Multiplanar, multisequence images of the brain and brainstem is performed without and with IV contras t, utilizing 5 mL intravenous Gadavist . FINDINGS: Diffusion weighted images demonstrate no evidence of a recent infarct or other diffusion ab normality. Mild ventricular and sulcal prominence is redemonstrated. Scattered focal and confluent ar eas of T2 hyperintensity demonstrated throughout the white matter bilaterally. Midline structures redemonstrate normal morphology. The craniocervical junction appears within kumar l limits. Post contrast images redemonstrate persistent oval well-defined mass left frontal lobe jhoana suring 2.1 x 2.1 x 2.0 cm axial image 23 and coronal image 17. There is increased T1 and low T2 signa l suggesting blood product. No definitive postcontrast enhancement, difficult to assess without subtr action images. No significant adjacent vasogenic edema. No new intraparenchymal masses identified. Th e dural venous sinuses remaining patent. The visualized sinuses are clear and the globes are intact. Increased fluid signal right mastoid air cells redemonstrated. IMPRESSION: Stable 2.1 cm left frontal lobe intraparenchymal mass could reflect treated neoplasm. No significant change from most recent MRIs. Background mild diffuse cerebral atrophy and moderate chron ic small vessel ischemic change is redemonstrated without significant interval change. Possible right -sided mastoiditis, correlate clinically.
== END | disposition home or self-care (01) ==
LOC: RADMRIMAIN 11:54
PROVIDERS: ATTEND Internal Medicine Hematology & Oncology
DX: C34.12 Malignant neoplasm of upper lobe, left bronchus or lung (principal); I67.82 Cerebral ischemia; G31.9 Degenerative disease of nervous system, unspecified
CPT/HCPCS: 82565; 84520; 71260; 74177; 36415; 70553; J1642; A9585; Q9967

== ENCOUNTER 2022-05-17 08:03 | Day surgery (SDC) | payer MEDICARE, OTHER ==
[2022-05-15 14:33] VITALS: BMI 22.8
[~2022-05-17 08:03] MED LIST changes: +LACTATED RINGERS 1,000 ML IV SCH; +LIDOCAINE 1% (10MG/ML) FOR IV START INTRADERMA PRN; -SODIUM CHLORIDE 0.9% 500 ML 500 ML in EMPTY BAG 1 BAG IV PRN
[2022-05-17 08:52] VITALS: TEMP 97.6
[2022-05-17] MEDS ORDERED: PROPOFOL 10 MG/ML 20 ML VIAL IV ONE (09:46)
--- NOTE | 2022-05-17 10:19 | P.PCN ---
Date of Procedure: 05/17/22 Procedure(s) Performed: BRIEF HISTORY: Patient is a 61-year-old pleasant female scheduled for an elective colonoscopy as a part of evaluation of prior history of colon polyps. Patient states that he had a colonoscopy about 5-7 years ago and was diagnosed with colon polyps. PROCEDURE PERFORMED: Colonoscopy with snare polypectomy and Endo Clip placement. PREOPERATIVE DIAGNOSIS: History of colon polyps. IV sedation per Anesthesia. PROCEDURE: After informed consent was obtained, the patient, was brought into the endoscopy unit. IV sedation was administered by Anesthesia under continuous monitoring. Digital rectal examination was normal. Initially the Olympus CF-160 flexible video colonoscope was then inserted in the rectum, gradually advanced into the cecum without any difficulty. Careful examination was performed as the scope was gradually being withdrawn. Ileocecal valve and the appendiceal orifice were visualized and appeared normal. Prep was excellent. Mucosa of the cecum, appeared normal. In the ascending colon there was a 4-5 cm broad-based polyp noted and there was a prior tattooing seen in this area. At this time snare polypectomy was performed in approximately 75% the polyp was removed in a piecemeal fashion. Following this 2 endoclips were placed to prevent post-polypectomy bleed. Rest of the ascending colon, transverse colon, descending colon, sigmoid colon, and rectum appeared normal. Retroflexion was performed in the rectum and no lesions were seen. The patient tolerated the procedure well. IMPRESSION: 1. 4-5 cm broad-based polyp in the ascending colon status post piecemeal snare polypectomy followed by Endo Clip placement (approximately 75% of the polyp removed) 2. Rest of the the colon appeared normal RECOMMENDATIONS: Findings of this examination were discussed with the patient as well as a family. She was advised to follow with the biopsy results. She'll be seen in office in one to 2 weeks and based the biopsy results will plan a repeat colonoscopy in 3 months..
[2022-05-17 10:33] VITALS: RESP 16
[2022-05-17 10:50] VITALS: BP 149/86; PULSE 72
== END 2022-05-17 11:10 | disposition home or self-care (01) ==
LOC: ORWHC2ENDO 08:03
PROVIDERS: ATTEND Internal Medicine Gastroenterology
DX: Z12.11 Encounter for screening for malignant neoplasm of colon (principal); D12.2 Benign neoplasm of ascending colon; E78.5 Hyperlipidemia, unspecified; I10 Essential (primary) hypertension; I71.40 Abdominal aortic aneurysm, without rupture, unspecified; J44.9 Chronic obstructive pulmonary disease, unspecified; F17.210 Nicotine dependence, cigarettes, uncomplicated; C34.90 Malignant neoplasm of unspecified part of unspecified bronchus or lung; C79.31 Secondary malignant neoplasm of brain; K21.9 Gastro-esophageal reflux disease without esophagitis; Z88.1 Allergy status to other antibiotic agents; Z79.890 Hormone replacement therapy; Z79.899 Other long term (current) drug therapy; Z87.19 Personal history of other diseases of the digestive system
CPT/HCPCS: 88305; 45385; J2704; 45382

== ENCOUNTER 2022-08-19 06:00 | Day surgery (SDC) | payer MEDICARE, OTHER ==
[~2022-08-19 06:00] MED LIST changes: +ACETAMINOPHEN TAB 500 MG TAB PO PRN; +HEPARIN SODIUM,PORCINE/PF 5,000 UNIT/0.5 ML SYRINGE SQ PRN; -LACTATED RINGERS 1,000 ML IV SCH; -LIDOCAINE 1% (10MG/ML) FOR IV START INTRADERMA PRN
[2022-08-19] MEDS ORDERED: MIDAZOLAM 2 MG/2 ML VIAL IV PRN (06:15)
[2022-08-19] MEDS ORDERED: ONDANSETRON 4 MG/2 ML VIAL IVP ONE (06:15)
[2022-08-19] MEDS ORDERED: DEXAMETHASONE SOD PHOSPHATE 4 MG/ML 1 ML VIAL IV ONE (06:15)
[2022-08-19] MEDS ORDERED: SCOPOLAMINE 1 MG/72 HR PATCH TRANSDERM ONE (06:15)
[2022-08-19] MEDS ORDERED: LACTATED RINGERS 1,000 ML IV SCH (06:15)
[2022-08-19] MEDS ORDERED: HYDROmorphone 0.5 MG/0.5 ML SYRINGE IVP PRN (07:00)
[2022-08-19] MEDS ORDERED: PROPOFOL 10 MG/ML 20 ML VIAL IV ONE (07:19)
[2022-08-19] MEDS ORDERED: fentaNYL (PF) 50 MCG/ML 2 ML AMP ONE (07:19)
[2022-08-19] MEDS ORDERED: MIDAZOLAM 2 MG/2 ML VIAL ONE (07:19)
[2022-08-19] MEDS ORDERED: hydrALAZINE HCL 20 MG/ML 1 ML VIAL IVP ONE (07:23)
[2022-08-19 07:26] VITALS: TEMP 97.5
--- NOTE | 2022-08-19 07:26 | P.GSHP ---
History of Present Illness H&P Date: 08/19/22 Chief Complaint: Lung cancer 61-year-old female here today for Port-A-Cath removal. Port was placed left side appears to be subclavian approach in [place] 4-5 years ago. Has been used up until recently for CAT scans and such. No pain. She would like the catheter removed at this time. Past Medical History Past Medical History: Cancer, COPD, GERD/Reflux, Hyperlipidemia, Hypertension Additional Past Medical History / Comment(s): dx. 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 3 1/2 yrs. ago, kidney stones, osteoporosis History of Any Multi-Drug Resistant Organisms: None Reported Past Surgical History: Section, Cholecystectomy, Hysterectomy Additional Past Surgical History / Comment(s): COLONOSCOPY, port inserted Past Anesthesia/Blood Transfusion Reactions: No Reported Reaction Additional Past Anesthesia/Blood Transfusion Reaction / Comment(s): no problem w/transfusion reaction Smoking Status: Current every day smoker - Past Family History Father Family Medical History: Cancer Medications and Allergies Home Medications Medication Instructions Recorded Confirmed Type Atorvastatin [Lipitor] 20 mg PO DAILY 01/25/19 08/19/22 History Cholecalciferol (Vitamin D3) 1,000 unit PO DAILY 01/25/19 08/19/22 History [Vitamin D3] Ipratropium [place] [Atrovent Hfa] 2 puff INHALATION QAM 01/25/19 08/19/22 History Losartan [Cozaar] 25 mg PO DAILY 01/25/19 08/19/22 History Aspirin 81 mg PO DAILY 08/14/22 08/19/22 History Ipratropium Nebulized [Atrovent 0.5 mg INHALATION HS 08/14/22 08/19/22 History Nebulized 0.2 MG/ML] atenoloL [Tenormin] 50 mg PO DAILY 08/14/22 08/19/22 History Allergies Allergy/AdvReac Type Severity Reaction Status Date / Time clindamycin Allergy Itching, Verified 08/19/22 06:51 rash,hives Surgical - Exam Physical exam: General: Well-developed, well-nourished HEENT: Normocephalic, sclerae nonicteric Abdomen: Nontender, nondistended Extremities: No edema Neuro: Alert and oriented Chest: Left-sided Port-A-Cath in place Assessment and Plan (1) Lung cancer Narrative/Plan: 61-year-old female with history of lung cancer. We'll proceed with Port-A-Cath removal. Risks of bleeding, infection, catheter breakage and catheter dislodgment discussed. She understands and wishes to proceed. Current Visit: Yes Status: Acute Code(s): C34.90 - MALIGNANT NEOPLASM OF UNSP PART OF UNSP BRONCHUS OR LUNG SNOMED Code(s): 181340368
[2022-08-19] MEDS ORDERED: LIDOCAINE 1% INJ 10MG/ML (10 ML MDV) SQ ONE ×2 (07:39)
[2022-08-19] MEDS ORDERED: NALOXONE 0.4 MG/ML 1 ML VIAL IV PRN (08:07)
[2022-08-19 08:15] VITALS: RESP 16
--- NOTE | 2022-08-19 08:19 | P.OP ---
Date of Procedure: 08/19/22 Procedure(s) Performed: PREOPERATIVE DIAGNOSIS: Lung cancer POSTOPERATIVE DIAGNOSIS: Same PROCEDURE: Port-A-Cath removal SURGEON: Ozzy EBL: Minimal ANESTHESIA: Sedation COMPLICATIONS: None OPERATIVE PROCEDURE: Patient was placed in the supine position. The patient was sedated per anesthesia that time. The chest was prepped and draped in the usual sterile fashion. The skin was localized with Marcaine solution. The previous incision was re-incised using a scalpel. The port was easily excised using a ccommodation of blunt dissection sharp dissection and electrocautery. The subcutaneous tissues were reapproximated using 3-0 Vicryl sutures. The skin was reapproximated using 4-0 Monocryl sutures. Skin glue was then applied. DISPOSITION: Stable to recovery room
[2022-08-19 08:39] VITALS: BP 140/77; PULSE 57
== END 2022-08-19 09:07 | disposition home or self-care (01) ==
LOC: OR 06:00
PROVIDERS: ATTEND Surgery
DX: C34.90 Malignant neoplasm of unspecified part of unspecified bronchus or lung (principal); J44.9 Chronic obstructive pulmonary disease, unspecified; K21.9 Gastro-esophageal reflux disease without esophagitis; E78.5 Hyperlipidemia, unspecified; I10 Essential (primary) hypertension; M81.0 Age-related osteoporosis without current pathological fracture; F17.200 Nicotine dependence, unspecified, uncomplicated; Z90.49 Acquired absence of other specified parts of digestive tract; Z87.442 Personal history of urinary calculi; Z85.118 Personal history of other malignant neoplasm of bronchus and lung; Z88.1 Allergy status to other antibiotic agents; Z79.82 Long term (current) use of aspirin; Z45.2 Encounter for adjustment and management of vascular access device; Z79.899 Other long term (current) drug therapy
CPT/HCPCS: 36590; J2250; J0360; J1100; J0690; J2405; J3010; J2001; J2704; J1170; J1644

== ENCOUNTER → 2022-10-28 | Outpatient (CLI) | payer MEDICARE, OTHER ==
[2022-10-28 14:33] LABS: Basophils # (A) 0.04 X 10*3/uL (0.00-0.10); Basophils % (A) 0.6 %; Eosinophils # (A) 0.04 X 10*3/uL (0.04-0.35); Eosinophils % (A) 0.6 %; HCT 49.9 % (37.2-46.3); HGB 15.9 g/dL (12.0-15.0); Immature Grans, Automated 0.3 %; Lymphocytes # (A) 1.39 X 10*3/uL (0.90-5.00); Lymphocytes % (A) 20.8 %; MCH 29.9 pg (27.0-32.0); MCHC 31.9 g/dL (32.0-37.0); MCV 93.8 fL (80.0-97.0); Monocytes # (A) 0.34 X 10*3/uL (0.20-1.00); Monocytes % (A) 5.1 %; NRBC Per 100 WBC 0 /100 WBCS (0.0-0.0); Neutrophils # (A) 4.86 X 10*3/uL (1.80-7.70); Neutrophils % (A) 72.6 %; Platelet Count 181 X 10*3/uL (140-440); RBC 5.32 X 10*6/uL (4.10-5.20); RDW 12.5 % (11.5-14.5); WBC 6.69 X 10*3/uL (4.50-10.00)
[2022-10-28 15:24] LABS: African American GFR (CKD) 79.4 (60.0-200.0); Albumin 4.6 g/dL (3.8-4.9); Albumin/Globulin Ratio 1.39 (1.60-3.17); BUN/Creat Ratio 10.67 Ratio (12.00-20.00); Blood Urea Nitrogen 9.6 mg/dL (9.0-27.0); Calcium 10.2 mg/dL (8.7-10.3); Globulin 3.3 g/dL (1.6-3.3); Non-African American GFR(CKD) 68.5 (60.0-200.0); Potassium 4.7 mmol/L (3.5-5.5); Total Bilirubin 0.6 mg/dL (0.30-1.20); Total Protein 7.9 g/dL (6.2-8.2)
[2022-10-28 16:00] LABS: Appearance,Urine Clear (Clear); Bilirubin,Urine Negative (Negative); Blood,Urine Small (Negative); Color,Urine Yellow (Yellow); Ketones,Urine Negative (Negative); Nitrite,Urine Negative (Negative); PH, Urine 6.5 (5.0-8.0); Specific Gravity,Urine 1.007 (1.001-1.030); Urobilinogen,Urine 0.2 (0.2,1.0)
[2022-10-28 17:00] LABS: Bacteria,Urine Trace /HPF (None Seen)
== END | disposition home or self-care (01) ==
LOC: LABPAT 09:17
PROVIDERS: ATTEND Urology
DX: Z01.812 Encounter for preprocedural laboratory examination (principal); N20.1 Calculus of ureter; N20.0 Calculus of kidney; R31.29 Other microscopic hematuria
CPT/HCPCS: 80053; 81001; 85025; 87086

== ENCOUNTER → 2022-11-04 | Outpatient (CLI) | payer MEDICARE, OTHER | END | disposition home or self-care (01) | LOC: LABPAT 09:46 | PROVIDERS: ATTEND Urology | DX: Z01.818 Encounter for other preprocedural examination (principal); R94.31 Abnormal electrocardiogram [ECG] [EKG] | CPT/HCPCS: 93005 ==

== ENCOUNTER 2022-11-05 10:46 | Day surgery (SDC) | payer MEDICARE, OTHER ==
--- NOTE | 2022-11-03 20:04 | P.GSHP ---
History of Present Illness H&P Date: 11/03/22 62 yo female sent to me because large kidney and ureteral stone on the left. this was identified on a ct scan in april of 2022. She recently was referred to me. the kidney is notably hydronephrotic. this was discussed with the patient as well as the multiple options of treatment. She cpmes for a left pcnl[large,>2cm]. the risks and complications have been discussed. - Constitutional Constitutional: Denies chills, Denies fever - EENT Eyes: denies blurred vision, denies pain Ears, nose, mouth and throat: Denies headache, Denies sore throat - Cardiovascular Cardiovascular: Denies chest pain, Denies shortness of breath - Respiratory Respiratory: Denies cough, Denies 7 - Gastrointestinal Gastrointestinal: Denies abdominal pain, Denies diarrhea, Denies nausea, Denies vomiting - Genitourinary (Female) Genitourinary: Denies dysuria, Denies hematuria - Genitourinary (Male) Genitourinary: Denies dysuria, Denies hematuria - Musculoskeletal Musculoskeletal: Denies myalgias - Integumentary Integumentary: Denies pruritus, Denies rash - Neurological Neurological: Denies numbness, Denies weakness - Psychiatric Psychiatric: Denies anxiety, Denies depression - Endocrine Endocrine: Denies fatigue, Denies weight change Past Medical History Past Medical History: Cancer, COPD, GERD/Reflux, Hyperlipidemia, Hypertension Additional Past Medical History / Comment(s): dx. 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 3 1/2 yrs. ago, kidney stones, osteoporosis. stone blocking left kidney- decreased function, AAA being monitored. History of Any Multi-Drug Resistant Organisms: None Reported Past Surgical History: Section, Cholecystectomy, Hysterectomy Additional Past Surgical History / Comment(s): COLONOSCOPY, port inserted and removed Past Anesthesia/Blood Transfusion Reactions: No Reported Reaction Additional Past Anesthesia/Blood Transfusion Reaction / Comment(s): no problem w/transfusion reaction Smoking Status: Current every day smoker - Past Family History Father Family Medical History: Cancer Mother Family Medical History: COPD Additional Family Medical History / Comment(s): emphysema Medications and Allergies Home Medications Medication Instructions Recorded Confirmed Type Atorvastatin [Lipitor] 20 mg PO HS 01/25/19 10/31/22 History Cholecalciferol (Vitamin D3) 1,000 unit PO DAILY 01/25/19 10/31/22 History [Vitamin D3] Ipratropium Turon [Atrovent Hfa] 2 puff INHALATION QAM 01/25/19 10/31/22 History Losartan [Cozaar] 25 mg PO DAILY 01/25/19 10/31/22 History Aspirin 81 mg PO HS 08/14/22 10/31/22 History Ipratropium Nebulized [Atrovent 0.5 mg INHALATION HS 08/14/22 10/31/22 History Nebulized 0.2 MG/ML] atenoloL [Tenormin] 50 mg PO DAILY 08/14/22 10/31/22 History Allergies Allergy/AdvReac Type Severity Reaction Status Date / Time clindamycin Allergy Itching, Verified 10/31/22 09:00 rash,hives Surgical - Exam - General well developed, well nourished, no distress - Eyes normal ocular movement, no icteric - ENT no hearing loss, no congestion - Neck no masses, trachea midline - Respiratory normal respiratory effort, clear to auscultation - Abdomen Abdomen: soft, non tender, no guarding, no rigid, no rebound - Integumentary no rash, no abnormal pigmentation - Neurologic no disoriented, no combative - Psychiatric oriented to time, oriented to person, oriented to place, speech is normal, memory intact Results - Imaging CT scan - abdomen: report reviewed, image reviewed CT scan - pelvis: report reviewed, image reviewed Assessment and Plan Assessment: Impression; Left renal and ureteral stones large. Plan: Left pcnl
[~2022-11-05 10:46] MED LIST changes: -ACETAMINOPHEN TAB 500 MG TAB PO PRN; +AMPICILLIN 1,000 MG in SODIUM CHLORIDE 0.9% 50 ML IVPB PRN; +DEXAMETHASONE SOD PHOSPHATE 4 MG/ML 1 ML VIAL IV ONE; +GENTAMICIN 70 MG in SODIUM CHLORIDE 0.9% 100 ML IVPB PRN; -HEPARIN SODIUM,PORCINE/PF 5,000 UNIT/0.5 ML SYRINGE SQ PRN; +HYDROmorphone 0.5 MG/0.5 ML SYRINGE IVP PRN; +LIDOCAINE 1% (10MG/ML) FOR IV START INTRADERMA PRN; +ONDANSETRON 4 MG/2 ML VIAL IVP ONE
--- NOTE | 2022-11-05 11:16 | XR ---
EXAMINATION TYPE: XR KUB DATE OF EXAM: 11/05/2022 11:03 AM CLINICAL HISTORY: Kidney stones. TECHNIQUE: Two supine KUB images of the abdomen are obtained. COMPARISON: Most recent CT May 06, 2022. FINDINGS: Roughly 3-4 adjacent right renal calculi mid to lower pole level with largest measuring 10 mm at L3 level are redemonstrated. Fairly similar appearance to prior. There is persistent 2.0 cm calculus at inferior L3 level within the proximal left ureter and new larg e staghorn type calculus in the left renal pelvis measuring 2.7 cm at superior L3 level. There is adj acent lateral 1.4 cm collecting system calculus on current study which is new from prior. Occasional scattered pelvic phlebolith is redemonstrated. Cholecystectomy clips are seen. Occasional calcifications throughout the spleen and calcified basilar pulmonary nodules consistent with old granulomatous disease are redemonstrated. Overall nonobstructi ve bowel gas pattern. Osseous structures are intact. IMPRESSION: Bilateral nephrolithiasis as detailed above.
[2022-11-05] MEDS: LACTATED RINGERS 1,000 ML IV SCH (11:21)
[2022-11-05] MEDS ORDERED: MIDAZOLAM 2 MG/2 ML VIAL IVP ONE (11:44)
[2022-11-05] MEDS ORDERED: SUCCINYLCHOLINE CHLORIDE 200 MG/10 ML VIAL IV ONE (12:34)
[2022-11-05] MEDS ORDERED: ROCURONIUM 10 MG/ML (5 ML VIAL) IV ONE (12:34)
[2022-11-05] MEDS ORDERED: WATER FOR INJECTION, STERILE 10 ML VIAL IV ONE (12:34)
[2022-11-05] MEDS ORDERED: PROPOFOL 10 MG/ML 20 ML VIAL IV ONE (12:34)
[2022-11-05] MEDS ORDERED: PHENYLEPHRINE-0.9% NACL SYG 1,000 MCG/10 ML SYRINGE ONE (12:34)
[2022-11-05] MEDS ORDERED: ePHEDrine 50 MG/ML 1 ML VIAL ONE (12:34)
[2022-11-05] MEDS ORDERED: fentaNYL (PF) 50 MCG/ML 2 ML AMP ONE (12:34)
[2022-11-05] MEDS ORDERED: LIDOCAINE 2% INJ 20 MG/ML (2 ML VIAL) ONE (12:34)
[2022-11-05] MEDS ORDERED: IOPAMIDOL-370 100ML BTL MISCELLANE ONE (13:21)
[2022-11-05] MEDS ORDERED: MAG HYDROX/AL HYDROX/SIMETH 30 ML CUP PO PRN (14:43)
[2022-11-05] MEDS ORDERED: ONDANSETRON 4 MG/2 ML VIAL IVP PRN (14:43)
[2022-11-05] MEDS ORDERED: NALOXONE 0.4 MG/ML 1 ML VIAL IV PRN (14:45)
[2022-11-05] MEDS ORDERED: HYDROmorphone PCA 10 MG/50 ML BAG IV PRN (14:45)
--- NOTE | 2022-11-05 14:50 | P.OP ---
Date of Procedure: 11/05/22 Preoperative Diagnosis: Renal and ureteral stones large disease greater than 2 cm, left Postoperative Diagnosis: Same Procedure(s) Performed: Cystoscopy, placement of occlusion balloon catheter left, percutaneous nephrostomy (Dr. Napoleon pisano) or cutaneous nephrostolithotomy with ultrasound and laser, placement of 20-Yoruba reentry nephrostomy tube Anesthesia: YOAV Surgeon: Yemi Burgess Estimated Blood Loss (ml): 50 Pathology: other (Stone) Condition: stable Disposition: PACU Indications for Procedure: Patient is 62. She has a 2 cm proximal ureteral stone and its obstructing as well as multiple left renal stones. She comes for percutaneous nephrostolithotomy alternatives and risks have been discussed Description of Procedure: Patient brought to the operating suite. Given general anesthesia on the transport gurney. Placed in a frog position with a sterile prep and drape. Cystoscopy identifies chronic cystitis cystica. The left ureteral orifice is identified and intubated with a 5-Yoruba occluding balloon catheter. She has received preoperative ampicillin and gentamicin. The patient is placed into prone position with care to airways and extremities. Dr. Pisano of radiology performed percutaneous access to a left middle pole ca lyx. We dilate the tract to 30-Yoruba. We introduced the rigid scope into the UPJ where the stone is seen distal to that in the left proximal ureter. With the ultrasound I break the stone into smaller fragments. I removed some the larger fragments. The stone extends distally and I'm unable to reach it with the rigid scope thus the flexible nephroscope was passed into the proximal ureter and with a 270 laser probe I break it into smaller pieces and basket the fragments out. At the end of that there are no remaining stones in the ureter. Ureters not is edematous as I would expect a. Remove another stone throughout the collecting system. I do an intraoperative nephrostogram and see no remaining stones that. A 20-Yoruba reentry nephrostomy tube with a ureteral catheter across the UPJ is placed and will remain in 5-7 days. The patient is awakened and returned recovery room in good condition. She tolerated the procedure well. Blood loss is 50 mL. Impression successful left percutaneous nephrostomy (large greater than 2 cm)
--- NOTE | 2022-11-05 15:02 | FL ---
EXAMINATION TYPE: FL Perc Nephrostomy New Access DATE OF EXAM: 11/05/2022 COMPARISON: Abdominal x-ray earlier today. HISTORY: Left renal stone. TECHNIQUE: Fluoroscopy. FINDINGS: Fluoroscopic guidance was provided during left renal scan alone percutaneous nephrostomy p rocedure performed by Dr. Burgess. A total of 4 minutes 30 seconds of fluoroscopic time was utilized d uring the procedure and 15 spot images are acquired. Please refer to procedure note for further detai ls. Total DAP 16.670 Gy x cm2. IMPRESSION: As Above.
[2022-11-05] MEDS: IPRATROPIUM 0.5 MG/2.5 ML NEBU INHALATION SCH (18:08)
[2022-11-05] MEDS ORDERED: IPRATROPIUM 0.5 MG/2.5 ML NEBU INHALATION SCH (21:00)
[2022-11-05] MEDS ORDERED: ATORVASTATIN 20 MG TAB PO SCH (21:00)
[2022-11-05] MEDS: CIPROFLOXACIN HCL 500 MG TAB PO SCH (21:23)
[2022-11-05] MEDS: DEXTROSE 5%-0.45% NACL 1,000 ML IV SCH (21:24)
[2022-11-05] MEDS: ACETAMINOPHEN TAB 325 MG TAB PO PRN (21:27)
[2022-11-06] MEDS: ACETAMINOPHEN TAB 325 MG TAB PO PRN (02:14)
[2022-11-06] MEDS: DEXTROSE 5%-0.45% NACL 1,000 ML IV SCH (02:15)
[2022-11-06] MEDS: LACTATED RINGERS 1,000 ML IV SCH (05:46)
[2022-11-06 08:02] VITALS: RESP 16; TEMP 98.3
[2022-11-06] MEDS: IPRATROPIUM 0.5 MG/2.5 ML NEBU INHALATION SCH (08:23)
[2022-11-06] MEDS ORDERED: atenoloL 50 MG TAB PO SCH (09:00)
[2022-11-06] MEDS ORDERED: LOSARTAN 25 MG TAB PO SCH (09:00)
--- NOTE | 2022-11-06 10:24 | P.DS ---
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 The patient had large left renal and ureteral stones with hydronephrosis. On 11/05/22 she underwent a cystoscopy, placement of occlusion balloon catheter left, percutaneous nephrostomy (Dr. Napoleon pisano) or cutaneous nephrostolithotomy with ultrasound and laser, placement of 20-Chinese reentry nephrostomy tube. The patient tolerated the procedure well and was sent to the recovery room in good condition. POD #1 the patient is tolerating a regular diet. She states her pain is well managed. Left nephrostomy tube draining light red urine. The patient's [place] catheter was removed, and she is able to void without difficulty. Her vital signs are stable and she is on room air. The patient has a follow up appointment already scheduled with Dr. Aparicio in one week. I have evaluated the patient and concur witht he above note jorge aparicio md Patient Condition at Discharge: Good Plan - Discharge Summary Discharge Rx Participant: No New Discharge Prescriptions: New Ciprofloxacin HCl [Cipro] 500 mg PO BID 5 Days #10 tab Ketorolac [Toradol] 10 mg PO Q6HR PRN #12 tab PRN Reason: Pain Continue Losartan [Cozaar] 25 mg PO DAILY Ipratropium Cornish [Atrovent Hfa] 2 puff INHALATION QAM Atorvastatin [Lipitor] 20 mg PO HS Cholecalciferol (Vitamin D3) [Vitamin D3] 1,000 unit PO DAILY atenoloL [Tenormin] 50 mg PO DAILY Ipratropium Nebulized [Atrovent Nebulized 0.2 MG/ML] 0.5 mg INHALATION HS Aspirin 81 mg PO HS Discharge Medication List Atorvastatin [Lipitor] 20 mg PO HS 01/25/19 [History] Cholecalciferol (Vitamin D3) [Vitamin D3] 1,000 unit PO DAILY 01/25/19 [History] Ipratropium Cornish [Atrovent Hfa] 2 puff INHALATION QAM 01/25/19 [History] Losartan [Cozaar] 25 mg PO DAILY 01/25/19 [History] Aspirin 81 mg PO HS 08/14/22 [History] Ipratropium Nebulized [Atrovent Nebulized 0.2 MG/ML] 0.5 mg INHALATION HS 08/14/22 [History] atenoloL [Tenormin] 50 mg PO DAILY 08/14/22 [History] Ciprofloxacin HCl [Cipro] 500 mg PO BID 5 Days #10 tab 11/06/22 [Rx] Ketorolac [Toradol] 10 mg PO Q6HR PRN #12 tab 11/06/22 [Rx] Follow up Appointment(s)/Referral(s): oJrge Aparicio MD [STAFF PHYSICIAN] - 11/11/22 9:20 am Patient Instructions/Handouts: Ciprofloxacin (By mouth), Ketorolac (By mouth), Nephrostomy Tube Care (DC) Activity/Diet/Wound Care/Special Instructions: - No heavy lifting, straining, or strenuous activity - Take pain medication as prescribed for discomfort - You may shower, no tub baths - It is normal to have blood in your urine - Increase your fluid intake - Leakage around the tube is normal - You may change the dressing around the tube as needed - Follow up with Dr. Aparicio in the office for tube removal Discharge Disposition: HOME SELF-CARE
[2022-11-06 10:55] VITALS: BP 145/80; PULSE 71
[2022-11-06] MEDS: CIPROFLOXACIN HCL 500 MG TAB PO SCH (10:55)
== END 2022-11-06 11:57 | disposition home or self-care (01) ==
LOC: OR 10:46 → 5NMEDONC 14:30 → OR 11-06 11:57
PROVIDERS: ATTEND Urology
DX: N13.2 Hydronephrosis with renal and ureteral calculous obstruction (principal); N30.20 Other chronic cystitis without hematuria; I10 Essential (primary) hypertension; E78.5 Hyperlipidemia, unspecified; J44.9 Chronic obstructive pulmonary disease, unspecified; K21.9 Gastro-esophageal reflux disease without esophagitis; Z85.118 Personal history of other malignant neoplasm of bronchus and lung; C79.31 Secondary malignant neoplasm of brain; Z92.21 Personal history of antineoplastic chemotherapy; Z92.3 Personal history of irradiation; M81.0 Age-related osteoporosis without current pathological fracture; I71.40 Abdominal aortic aneurysm, without rupture, unspecified; Z87.442 Personal history of urinary calculi; Z90.49 Acquired absence of other specified parts of digestive tract; Z98.890 Other specified postprocedural states; F17.200 Nicotine dependence, unspecified, uncomplicated; Z83.6 Family history of other diseases of the respiratory system; Z79.82 Long term (current) use of aspirin; Z79.51 Long term (current) use of inhaled steroids; Z79.899 Other long term (current) drug therapy; Z88.1 Allergy status to other antibiotic agents
CPT/HCPCS: 50081; 50432; 94640 ×2; 94760 ×2; 82365; 74018; C1769 ×6; C2628; J2250; J0330; J1100; J2405; J3010; J1580; J0290; J2370; J2704; J1170; Q9967; J2001; 86850; 86900; 86901

== ENCOUNTER → 2022-12-23 | Outpatient (CLI) | payer MEDICARE, OTHER ==
--- NOTE | 2022-12-23 12:15 | CT ---
EXAMINATION TYPE: CT ChestAbdPelvis w con DATE OF EXAM: 12/23/2022 COMPARISON: 05/06/2022 HISTORY: lung ca CT DLP: 1109 mGycm Automated exposure control for dose reduction was used. CONTRAST: CT scan of the chest, abdomen and pelvis is performed with Oral Contrast and with IV Contrast, patien t injected with 100 mL of Isovue 300. FINDINGS: CT chest: Abutting the major fissure is a 8.5 x 13 mm mass with angular margins and dystrophic calcifications. This presumably site of the previous lung cancer and most likely represents residual scarring with dy strophic calcification. The possibility of persistent neoplasm is not excluded. There are multiple calcified hilar lymph nodes and scattered calcified granulomas within the lungs. There is no airspace consolidation suggest acute pneumonia. There is no pleural effusion or pneumotho rax. The great vessels chest are normal and there is no mediastinal, hilar or axillary adenopathy. The osseous structures of the thorax are intact and there is no metastatic bone disease. CT abdomen and pelvis: There are 3 hepatic masses with dense dystrophic calcification which were seen previously and are sta ble. These most likely represent treated metastatic deposits. No abnormality of the spleen or pancreas or adrenal glands is identified. There is fatty infiltration liver. There is surgical absence of the gallbladder. There is no biliary ductal dilatation. There is no hydronephrosis or solid renal mass in the right kidney. There are 2 right renal calcifica tions the largest of which measures 8.7 mm. There is resolution of the left hydronephrosis and calcification which was seen in the proximal left ureter. There is a persistent nonobstructing 3 to 4 mm calcification in the inferior left kidney. There is persistent aneurysmal dilatation of the proximal abdominal aorta which is completely occlude d at the level of the kidneys. This is unchanged compared to previous. The bowel loops are normal in caliber is no evidence of obstruction. No inflammatory changes are iden tified in the bowel wall or mesentery. There is no free intraperitoneal air or fluid. The stomach is markedly distended with contrast and air. There are surgical absence of the uterus. There is no pelvic mass, free fluid, abscess or adenopathy. 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 No destructive or lytic bony lesions are seen IMPRESSION: 1. Left upper lobe mass essentially stable with dystrophic calcifications consistent with a treated l yajaira cancer malignancy. 2. 3 stable heavily calcified masses within the liver consistent with treated metastatic disease. 3. Fatty liver. 4. Cholelithiasis. 5. Stable abdominal aortic aneurysm with complete occlusion of the proximal abdominal aorta unchanged compared to previous. 6. Stable sclerotic lesions in the right proximal femur and stable findings of avascular process in t he left femoral head 7. Surgical absence of the uterus. 8. Resolution of the large proximal left obstructing ureteral calculus in left hydronephrosis. 9. Stable multiple nonobstructing renal calcifications.
== END | disposition home or self-care (01) ==
LOC: RADCTMAIN 09:17
PROVIDERS: ATTEND Internal Medicine Hematology & Oncology
DX: C34.12 Malignant neoplasm of upper lobe, left bronchus or lung (principal); C78.7 Secondary malignant neoplasm of liver and intrahepatic bile duct; I10 Essential (primary) hypertension; E78.5 Hyperlipidemia, unspecified; N13.30 Unspecified hydronephrosis; K76.0 Fatty (change of) liver, not elsewhere classified; K80.20 Calculus of gallbladder without cholecystitis without obstruction; I71.40 Abdominal aortic aneurysm, without rupture, unspecified; M89.9 Disorder of bone, unspecified; N28.89 Other specified disorders of kidney and ureter; Z90.710 Acquired absence of both cervix and uterus
CPT/HCPCS: 71260; 74177; Q9967

== ENCOUNTER → 2023-04-25 | Outpatient (CLI) | payer MEDICARE, OTHER ==
--- NOTE | 2023-04-28 09:33 | MM ---
Reason for Exam: Screening (asymptomatic). Last mammogram was performed 1 year(s) and 1 month(s) ago. Patient History: Menarche at age 12. First Full-Term at age 24. Left ovary removed at age 40. Right ovary removed at age 40. Hysterectomy at age 40. Postmenopausal. Other cancer. Core Biopsy on the Left side. 01/10/2003, Benign Stereotactic Core Biopsy on the left side. Risk Values: Sera 5 year model risk: 2.1%. NCI Lifetime model risk: 9.2%. Prior Study Comparison: 04/03/2018 Screening Mammogram, [facility]. 10/18/2020 Bilateral Screening Mammogram, [facility]. 03/26/2022 Bilateral MG 3D screening mammo w/cad, [facility]. Tissue Density: The breast tissue is heterogeneously dense. This may lower the sensitivity of mammography. Findings: Analyzed By CAD. There is no suspicious group of microcalcifications or new suspicious mass. Benign-appearing calcifications bilaterally. Overall Assessment: Benign, BI-RAD 2 Management: Screening Mammogram of both breasts in [address] [facility] will attempt to contact patient to return for supplemental views and ultrasound if indicated. Patient should continue monthly self-breast exams. A clinical breast exam by your physician is recommended on an annual basis. This exam should not preclude additional follow-up of suspicious palpable abnormalities. Note on Sera scores and lifetime risk: 1. A Sera score greater than 3% is considered moderate risk. If this is the case, consider specialist referral to assess eligibility for a risk reducing agent. 2. If overall lifetime risk for the development of breast cancer is 20% or higher, the patient may qualify for future screening with alternating mammogram and breast MRI. Electronically signed and approved by: Karsten Spears DO
== END | disposition home or self-care (01) ==
LOC: RADMAMWWP 07:46
PROVIDERS: ATTEND Family Medicine
DX: Z12.31 Encounter for screening mammogram for malignant neoplasm of breast (principal); Z78.0 Asymptomatic menopausal state
CPT/HCPCS: 77063; 77067

== ENCOUNTER → 2023-07-02 | Outpatient (CLI) | payer MEDICARE, OTHER ==
--- NOTE | 2023-07-02 12:43 | CT ---
EXAMINATION TYPE: CT ChestAbdPelvis w con CT DLP: 943 mGycm, Automated exposure control for dose reduction was used. DATE OF EXAM: 07/02/2023 12:08 PM COMPARISON: 12/23/2022. CLINICAL INDICATION:Female, 62 years old with history of C34.12 MALIGNANT NEOPLASM OF UPPER LOBE, LEF T BRON, LT upper lobe lung ca, follow up. Technique: Multiple axial images of the chest, abdomen, and pelvis were obtained. Two-dimensional cor onal and sagittal reconstructions were obtained. Contrast used:100 mL of Isovue 300 with IV Contrast, Oral contrast used: with Oral Contrast Findings: CHEST: LUNGS/ PLEURA: Scattered calcified pulmonary nodules. Stable parenchymal changes near the left major fissure in the lateral aspect of the midlung. No new or enlarging pulmonary nodules. Partially calcif ied lymph nodes in the mediastinum are present. AIRWAY: Patent and unremarkable. HEART: Size within normal limits. MEDIASTINUM: No gross evidence of adenopathy. Scattered calcified granulomas. VASCULATURE: No aortic aneurysm. MUSCULOSKELETAL: No acute osseous abnormalities. SOFT TISSUES/LYMPH NODES: Unremarkable. LOWER NECK: No significant findings. ABDOMEN: ABDOMEN LIVER: Stable partially calcified lesions within the liver. No new or enlarging suspicious masses. GALLBLADDER AND BILE DUCTS: Unremarkable. PANCREAS: Unremarkable. SPLEEN: Unremarkable. ADRENAL GLANDS: Similar nodular changes to the bilateral adrenal glands left greater than right. KIDNEYS AND URETERS: Bilateral nonobstructing renal calculi. No evidence for hydronephrosis. PELVIS BLADDER: Unremarkable REPRODUCTIVE: The uterus is surgically absent. ABDOMEN & PELVIS STOMACH AND BOWEL: No evidence of bowel obstruction. PERITONEUM: No evidence of pneumoperitoneum or free fluid. VASCULATURE: Infrarenal abdominal aortic aneurysm with mural thrombus and occlusion distally. The abd ominal aorta measures up to 4.0 x 3.8 cm. MUSCULOSKELETAL: No acute osseous abnormalities LYMPH NODES: No gross evidence for lymphadenopathy. SOFT TISSUE/ABDOMINAL WALL: Fat-containing umbilical hernia. IMPRESSION: 1. No evidence for new or enlarging mass. No evidence for lymphadenopathy. 2. Stable calcified lesions throughout the lungs and calcified liver lesions. 3. Abdominal aortic aneurysm with occlusion similar to prior. 4. Sequela of granulomatous disease. 5. Bilateral nonobstructing renal calculi.
--- NOTE | 2023-07-02 13:54 | MR ---
EXAMINATION TYPE: MR brain wo/w con DATE OF EXAM: 07/02/2023 COMPARISON: 12/13/2022 and 05/06/2022 HISTORY: 62-year-old female C34.12 MALIGNANT NEOPLASM OF UPPER LOBE, LEFT BRON TECHNIQUE: Multiplanar, multisequence images of the brain and brainstem were acquired before and aft er administration of 5 mL IV Gadavist. Diffusion weighted imaging is performed. FINDINGS: There is mild to moderate generalized supratentorial volume loss. Secondary mild ventricular prominen ce is unchanged. Moderate confluent periventricular T2 bright white matter change and additional moderate scattered br ight signal foci throughout the deep white matter regions of both cerebral hemispheres. Gradient sequence shows hemosiderosis along the left frontoparietal junction and left parietal convex ity. Redemonstrated lesion in the left frontal lobe measuring 2.7 cm AP by 1.7 cm craniocaudal by 1.9 cm w siri. This remains unchanged back to at least 05/06/2022 with a hemosiderin ring and intrinsic bright T 1-weighted signal. There is bright signal on postcontrast sequences well likely due to intrinsic insp issated or hemorrhagic material. No obvious suspicious new or nodular areas of enhancement are seen w ith respect to this lesion. No new enhancing intracranial lesion identified. Dural venous sinuses are patent. There is no evidence for acute infarction, midline shift, herniation, effacement of basal cisterns, o r extra-axial fluid collection. Midline structures demonstrate normal morphology. The craniocervical junction is normal. Moderate mucosal thickening throughout the ethmoid air cells. Leftward nasal septal deviation. Mild m ucosal thickening left maxillary sinus. Fluid within the right mastoid air cells. Globes are intact. IMPRESSION: 1. Redemonstrated site of treated disease left frontal lobe, unchanged at 2.7 x 1.7 x 1.9 cm compared back to at least 05/06/2022. Hemosiderin rim and intrinsic bright T1 signal suggesting inspissated or hemorrhagic material is again noted. No suspicious new or nodular areas of enhancement. 2. Similar background mild diffuse atrophy and moderate burden of chronic small vessel ischemic disea se. 3. Fluid within the right mastoid air cells redemonstrated. Correlate for any mastoid exclude mastoid itis. 4. Moderate chronic ethmoid sinus disease.
== END | disposition home or self-care (01) ==
LOC: RADCTMAIN 09:12
PROVIDERS: ATTEND Internal Medicine Hematology & Oncology
DX: C34.12 Malignant neoplasm of upper lobe, left bronchus or lung (principal); I10 Essential (primary) hypertension; E78.5 Hyperlipidemia, unspecified; K76.9 Liver disease, unspecified; I71.40 Abdominal aortic aneurysm, without rupture, unspecified; N20.0 Calculus of kidney; J32.2 Chronic ethmoidal sinusitis; I67.82 Cerebral ischemia
CPT/HCPCS: 71260; 74177; 36415; 70553; Q9967; A9585

== ENCOUNTER → 2023-12-31 | Outpatient (CLI) | payer MEDICARE, OTHER | END | disposition home or self-care (01) | LOC: RADMRIMAIN 20:53 | PROVIDERS: ATTEND Internal Medicine Hematology & Oncology | DX: Z53.9 Procedure and treatment not carried out, unspecified reason (principal) ==

== ENCOUNTER → 2023-12-31 | Outpatient (CLI) | payer MEDICARE, OTHER ==
--- NOTE | 2024-01-01 00:09 | CT ---
EXAMINATION TYPE: CT chest w con DATE OF EXAM: 12/31/2023 COMPARISON: 07/02/2023 HISTORY: Follow up for lung cancer. CT DLP: 128.4 mGycm, Automated exposure control for dose reduction was used. CONTRAST: Performed injected with 100ml mL of Isovue 300. TECHNIQUE: Axial images were obtained at 5 mm thick sections. Reconstructed images are reviewed on Arthena computer in the coronal plane. FINDINGS: Portion of the thyroid visualized is normal. There is a calcified 0.5 cm granuloma right midlung. There is irregular density with internal calcifications in the left midlung may be within the posteri or lingula adjacent to the major fissure. Example image series 4 image 34 finding was present previou sly and appears similar. There is a calcified granuloma within the lingula. Series 4 image 37. Small nodular densities are in the peripheral right lung, series 4 image 43 additional calcifications in th e posterior medial right lung base. Series 4 image 53.r No enlarged mediastinal or hilar adenopathy is evident. The ascending aorta diameter at the level o f the main pulmonary artery is 3.2 cm. The main pulmonary artery diameter at the bifurcation is 2.[address] sections are obtained through the upper abdomen. Large calcifications are within the right lobe liver. Aneurysm is visualized within the abdominal aorta. This extends out of the field of view . Greatest AP dimension on this examination is 3.6 cm. IMPRESSION: 1. Multiple scattered calcifications within the bilateral lung reeder likely representing granuloma.. No interval change from comparison. 2. Abdominal aortic aneurysm partially visualized
== END | disposition home or self-care (01) ==
LOC: RADCTMAIN 09:15
PROVIDERS: ATTEND Internal Medicine Hematology & Oncology
DX: C34.12 Malignant neoplasm of upper lobe, left bronchus or lung (principal); I71.40 Abdominal aortic aneurysm, without rupture, unspecified; I10 Essential (primary) hypertension; E78.5 Hyperlipidemia, unspecified; J98.4 Other disorders of lung
CPT/HCPCS: 71260; 70553; Q9967; A9585

== ENCOUNTER → 2024-04-28 | Outpatient (CLI) | payer MEDICARE, OTHER ==
--- NOTE | 2024-04-28 21:27 | BD ---
EXAMINATION TYPE: Axial Bone Density DATE OF EXAM: 04/28/2024 CLINICAL HISTORY: 63 years old Female. ICD-10 CODE: M85.89 DISORDER OF BONE Height: 60.2 Weight: 107 FRAX RISK QUESTIONS: Glucocorticoids (More than 3mos): yes, for copd (Ex: prednisone, prednisolone, methylprednisolone, dexamethasone, and hydrocortisone). Secondary Osteoporosis: yes 3. Menopause before 45: no about 50 4. Malnutrition: very slender and hx of 3 different cancers 5. Chronic liver disease: yes Current Tobacco Use: yes RISK FACTORS HISTORY OF: copd, high cholesterol, liver, brain, and lung ca, hx of chemo, osteoarthritis, MEDICATIONS: steroids, copd, cholesterol, bp meds, hx of radiation and chemo EXAM MEASUREMENTS: Bone mineral densitometry was performed using the Circular System. Bone mineral density as measured about the Lumbar spine is: ----- L1-L4(G/cm2): 0.954 T Score Values are as follows: ----- L1: -2.2 ----- L2: -2.1 ----- L3: -1.5 ----- L4: -1.9 ----- L1-L4: -1.9 Z Score Values are as follows: ----- L1: -0.2 ----- L2: -0.1 ----- L3: 0.5 ----- L4: 0.1 ----- L1-L4: 0.1 Bone mineral density has: Decreased -2.1% since study of: 03.26.2022 Bone mineral density about the R hip (g/cm2): 0.702 Bone mineral density about the L hip (g/cm2): 0.726 T Score values are as follows: -----R Neck: -1.8 -----L Neck: -2.1 -----R Total: -2.4 -----L Total: -2.2 Z Score values are as follows: -----R Neck: 0.0 -----L Neck: -0.3 -----R Total: -0.9 -----L Total: -0.7 Bone mineral density has: Decreased -5.2% since study of: 03.26.2022 FRAX%s: The graph provided illustrates a 16.1% chance for a major osteoporotic fx and a 4.7% chance f or the hips probability for fx in 10 years time. IMPRESSION: Osteopenia (T Score between -2.5 and -1). There is slightly increased risk of fracture and the patient may be considered for treatment. Re-Screen 2-5 years. NOTE: T-SCORE=SD OF THE YOUNG ADULT MEAN. [facility], , 04/28/2024 9:24 PM
--- NOTE | 2024-05-02 15:01 | MM ---
Reason for Exam: Screening (asymptomatic). Last screening mammogram was performed 12 month(s) ago. Patient History: Menarche at age 12. First Full-Term at age 24. Left ovary removed at age 40. Right ovary removed at age 40. Hysterectomy at age 40. Postmenopausal. Other cancer. Core Biopsy on the Left side. 01/10/2003, Benign Stereotactic Core Biopsy on the left side. Risk Values: Sera 5 year model risk: 2.1%. NCI Lifetime model risk: 8.9%. Prior Study Comparison: 10/18/2020 Bilateral Screening Mammogram, [facility]. 03/26/2022 Bilateral MG 3D screening mammo w/cad, [facility]. 04/25/2023 Bilateral MG 3D screening mammo w/cad, [facility]. Tissue Density: The breasts are heterogeneously dense, which may obscure small masses. Findings: Analyzed By CAD. The pattern is symmetrical. Multiple benign spherical calcifications are present bilaterally. Coarse calcifications at 12:00 posterior left breast, stable from comparison. No suspicious groups of microcalcifications, spiculated or lobular masses, architectural distortion or other secondary signs of malignancy are mammographically apparent. Overall Assessment: Benign, BI-RAD 2 Management: Screening Mammogram of both breasts in 1 year. A negative mammogram report should not preclude additional follow up of suspicious palpable abnormalities. Patient should continue monthly self breast exam. A clinical breast exam by your physician is recommended on an annual basis and results should be correlated with mammographic findings. Note on Sera scores and lifetime risk: 1. A Sera score greater than 3% is considered moderate risk. If this is the case, consider specialist referral to assess eligibility for a risk reducing agent. 2. If overall lifetime risk for the development of breast cancer is 20% or higher, the patient may qualify for future screening with alternating mammogram and breast MRI. [facility], , 05/02/2024 2:58 PM. Electronically signed and approved by: Berto Fenton D.O. Radiologis
== END | disposition home or self-care (01) ==
LOC: RADMAMWWP 08:58
PROVIDERS: ATTEND Family Medicine
DX: M85.89 Other specified disorders of bone density and structure, multiple sites
CPT/HCPCS: 77063; 77067; 77080

== ENCOUNTER → 2024-12-20 | Outpatient (CLI) | payer MEDICARE, OTHER ==
--- NOTE | 2024-12-20 13:47 | CT ---
EXAMINATION TYPE: CT ChestAbdPelvis w con DATE OF EXAM: 12/20/2024 12:58 PM COMPARISON: Chest 12/31/[address] 07/02/2023 CLINICAL INDICATION: Female, 64 years old with history of C34.12 MALIGNANT NEOPLASM OF UPPER LOBE, LE FT BRON; PHH, lung ca Technique: CT ChestAbdPelvis after IV contrast. Coronal and sagittal reconstructions were obtained. Contrast used:100 mL of Isovue 300 with IV Contrast, Oral contrast used: with Oral Contrast CT DLP: 483.5 mGycm, Automated exposure control for dose reduction was used. Findings: CHEST: The heart is normal size with similar small anterior pericardial effusion measuring 6 mm thick. LAD a nd RCA coronary calcification is present. Conventional arch vessel branching anatomy. Calcified bilateral hilar lymph nodes compatible with prior granulomas disease. No thoracic lymphaden opathy by CT size criteria. Ectatic lower descending thoracic aorta to 2.8 cm is unchanged. Scattered calcified and noncalcified pulmonary nodules measuring up to 6 mm remain unchanged. A coupl e focal irregular densities inferior lingula measuring up to 1.3 cm also unchanged. No new or enlargi ng nodules are identified. Background moderate emphysematous change. No consolidation or pleural effusion. ABDOMEN: Areas of hepatic calcification measuring up to 2.0 cm redemonstrated. Portal venous system is patent. No biliary ductal dilatation. Cholecystectomy clips. Diffuse thickening of the left adrenal gland is unchanged. Right adrenal gland shows no gross abnorma lity. Bilateral nephrolithiasis with stones measuring up to 1.1 cm. Symmetric uptake and excretion of contr ast from both kidneys. Numerous calcified granulomas in the spleen. Pancreas within normal limits. Redemonstrated infrarenal fusiform AAA, current caliber 4.5 cm versus 4.0 cm measured on 07/02/2023. In addition, there is [place] of the contrast column at the level of the hernia redemonstrated. P rominent inferior to gastric artery and abdominal wall collaterals are redemonstrated. Some scattered prominent small bowel loops are present throughout. No transition point. Low hanging c ecum. Portions of a normal appendix are noted. Oral contrast progressed to the cecum. Mildly redundan t sigmoid colon. Mild overall stool burden. No pericolonic inflammatory change. No mesenteric or retroperitoneal adenopathy. Right retroperitoneal nodularity seems to correspond to ectasia of the right gonadal vein, unchanged back to 2022. Pelvis: Bladder partially distended. A few pelvic phleboliths noted. Uterus surgically absent. Suspect visual ization of small bilateral ovaries. No abnormal fluid collection in the pelvis or pelvic lymphadenopa thy. Bones: Redemonstrated patchy sclerosis of the left femoral head suggesting AVN, similar compared to 2022. No subarticular collapse is seen. No osseous destructive process. IMPRESSION: 1. A couple densities within the inferior lingula measuring up to 1.3 cm remain unchanged, probably c orresponding to site of treated disease. Other scattered 6 mm and smaller pulmonary nodules (some of which represent calcified granulomas) are also unchanged. Background COPD with moderate emphysema. 2. Unchanged thickening left adrenal gland. Stable calcified lesions within the liver. No evidence fo r disease progression. 3. Redemonstrated infrarenal AAA with occlusion. Current caliber 4.5 cm versus 4.0 cm measured on . Distal perfusion from prominent inferior epigastric artery and abdominal wall collaterals. R ecommend vascular surgery evaluation. 4. Bilateral nephrolithiasis measuring up to 1.1 cm. 5. Redemonstrated left femoral head AVN without subarticular collapse. [facility], , 12/20/2024 1:45 PM
== END | disposition home or self-care (01) ==
LOC: RADCTMAIN 10:41
PROVIDERS: ATTEND Internal Medicine Hematology & Oncology
DX: C34.12 Malignant neoplasm of upper lobe, left bronchus or lung (principal); E78.5 Hyperlipidemia, unspecified; M85.9 Disorder of bone density and structure, unspecified; I71.43 Infrarenal abdominal aortic aneurysm, without rupture; N20.0 Calculus of kidney; J98.4 Other disorders of lung; R91.8 Other nonspecific abnormal finding of lung field; K76.89 Other specified diseases of liver; J43.9 Emphysema, unspecified
CPT/HCPCS: 71260; 74177; Q9967

== ENCOUNTER → 2024-12-21 | Outpatient (CLI) | payer MEDICARE, OTHER ==
--- NOTE | 2024-12-21 12:32 | MR ---
EXAMINATION TYPE: MR brain wo/w con DATE OF EXAM: 12/21/2024 11:41 AM COMPARISON: 12/31/2023. CLINICAL INDICATION: Female, 64 years old with history of C34.12 MALIGNANT NEOPLASM OF UPPER LOBE, LE FT BRON, Brain cancer 1 year f/u TECHNIQUE: Multi planar, multi sequence imaging was performed through the brain including: T1, T2, In version recovery, susceptibility weighted imaging and gradient echo imaging and Diffusion weighted im aging. The patient was then given intravenous contrast and multi planar, T1 fat-saturation images wer e obtained. IV Contrast: 5 mL Gadobutrol FINDINGS: Stable left frontal lobe peripherally lesion measuring 23 x 16 x 27 mm. Susceptibility this is intrin sic high T1 signal. No definitive postcontrast enhancement. Blooming artifact around the surgical bed . Additional susceptibility artifact along the dura posterior left lateral aspect compatible with hem osiderin deposition. Mild cerebral atrophy with proportional dilation to the ventricular system. Scat tered nonspecific white matter changes throughout the deep white matter. Fenestration within the righ t A1/A2 segment The bone marrow signal is within normal limits. Paranasal sinuses and mastoid air cells: No significant paranasal sinus disease. Visualized orbits: Orbital contents are intact. IMPRESSION: 1. Stable left frontal lobe 23 x 16 x 27 mm lesion not significantly changed from prior 2. No new lesions identified. 3. No evidence of Acute/subacute infarct 4. Nonspecific white matter changes, likely related to small vessel ischemic disease. [facility], , 12/21/2024 12:30 PM
== END | disposition home or self-care (01) ==
LOC: RADMRIMAIN 10:45
PROVIDERS: ATTEND Internal Medicine Hematology & Oncology
DX: C34.12 Malignant neoplasm of upper lobe, left bronchus or lung (principal); I10 Essential (primary) hypertension; E78.5 Hyperlipidemia, unspecified; R90.82 White matter disease, unspecified
CPT/HCPCS: 70553; A9585

== ENCOUNTER 2025-01-17 03:42 | Emergency (ER) | payer MEDICARE, OTHER ==
[2025-01-17 03:50] VITALS: TEMP 97.9
--- NOTE | 2025-01-17 04:38 | ED ---
General Adult HPI <MarichuyTimothy Deniz - Last Filed: 01/17/25 09:30> - General Source: patient Mode of arrival: ambulatory Limitations: no limitations <Kinjal Gallegos - Last Filed: 01/21/25 12:18> - General Chief complaint: Abdominal Pain Stated complaint: abd pain Time Seen by Provider: 01/17/25 03:57 - History of Present Illness Initial comments: Patient is a 64-year-old female past medical history of lung cancer, currently on remission presenting for lower abdominal pain. Patient states pain began on Friday, described as left flank and left lower abdominal pain that was sharp in nature. She thought it was a kidney stone and used a heating pack which intermittently improved the pain. Pain began to worsen again yesterday and is now diffuse across her lower abdomen and also notes bilateral low back pain. She endorses nausea and multiple episodes of nonbloody nonbilious emesis. Last bowel movement was about 2 days ago. Denies diarrhea melena or hematochezia. Prior abdominal surgeries include 2 prior C-sections and a prior cholecystectomy. States that pain initially felt like prior kidney stones however now feels like someone is "punching her in the abdomen". Attempted Tylenol yesterday evening around 9:00 without improvement of pain. She denies fevers, chest pain or new shortness of breath. States she is always shortness of breath due to COPD. Denies lower extremity swelling, dysuria, hematuria or urinary frequency. (Kinjal Gallegos) - Related Data Home Medications Medication Instructions Recorded Confirmed Atorvastatin [Lipitor] 20 mg PO HS 01/25/19 11/05/22 Cholecalciferol (Vitamin D3) 1,000 unit PO DAILY 01/25/19 11/05/22 [Vitamin D3] Ipratropium Catlin [Atrovent Hfa] 2 puff INHALATION QA 01/25/19 11/05/22 Losartan [Cozaar] 25 mg PO DAILY 01/25/19 11/05/22 Aspirin 81 mg PO HS 08/14/22 11/05/22 Ipratropium Nebulized [Atrovent 0.5 mg INHALATION HS 08/14/22 11/05/22 Nebulized 0.2 MG/ML] atenoloL [Tenormin] 50 mg PO DAILY 08/14/22 11/05/22 Previous Rx's Medication Instructions Recorded Ciprofloxacin HCl [Cipro] 500 mg PO BID 5 Days #10 tab 11/06/22 Ketorolac [Toradol] 10 mg PO Q6HR PRN #12 tab 11/06/22 Cephalexin [Keflex] 500 mg PO Q12HR 7 Days #14 cap 01/17/25 HYDROcodone/APAP 5-325MG [Lagrange 1 tab PO Q6HR PRN 3 Days #12 tab 01/17/25 5-325] Allergies Allergy/AdvReac Type Severity Reaction Status Date / Time clindamycin Allergy Itching, Verified 01/17/25 03:50 rash,hives Review of Systems ROS Other: All systems not noted in ROS Statement are negative. <Timothy Benedict - Last Filed: 01/17/25 09:30> ROS Other: All systems not noted in ROS Statement are negative. <Kinjal Gallegos - Last Filed: 01/21/25 12:18> ROS Statement: Those systems with pertinent positive or pertinent negative responses have been documented in the HPI. Past Medical History Past Medical History: Asthma, Cancer, GERD/Reflux, Hyperlipidemia, Hypertension Additional Past Medical History / Comment(s): LUNG CANCER. History of Any Multi-Drug Resistant Organisms: None Reported Past Surgical History: Hysterectomy Additional Past Surgical History / Comment(s): COLONOSCOPY, port inserted Past Anesthesia/Blood Transfusion Reactions: No Reported Reaction Additional Past Anesthesia/Blood Transfusion Reaction / Comment(s): no problem w/transfusion reaction Past Psychological History: No Psychological Hx Reported Smoking Status: Current some day smoker - Past Family History Father Family Medical History: Cancer Mother Family Medical History: COPD <Kinjal Gallegos - Last Filed: 01/21/25 12:18> General Exam Limitations: no limitations <Kinjal Gallegos - Last Filed: 01/21/25 12:18> - General Exam Comments Initial Comments: PE: CONSTITUTIONAL: No apparent distress, well appearing SKIN: Warm, dry, no jaundice, hives or petechiae EYES: Pupils are equally round, extraocular movements intact without nystagmus, clear conjunctiva, non-icteric sclera HENT: Normocephalic, atraumatic, moist mucus membranes, oropharynx clear without exudates NECK: , Full range of motion, normal appearance PULMONARY: Clear to auscultation without wheezes, rhonchi, or rales, normal excursion, no accessory muscle use and no stridor CARDIOVASCULAR: Regular rate, rhythm, normal S1 and S2. No appreciated murmurs, rubs or gallops. Strong radial pulses with intact distal perfusion. No lower extremity edema GASTROINTESTINAL: Soft, active bowel sounds throughout, diffusely tender, predominant in the bilateral lower quadrants and periumbilical region, di stended, no palpable masses, no rebound + guarding. No hepatosplenomegaly, no CVA tenderness GENITOURINARY: MUSCULOSKELETAL: Extremities have no gross deformity, no edema, redness, or swelling. No calf swelling NEUROLOGIC:_a/o x 3, GCS 15, normal mentation and speech. Moves all extremities x 4 without motor or sensory deficit PSYCHIATRIC:_normal mood and affect, thought process is clear and linear (Kinjal Gallegos) Course Vital Signs 01/17/25 01/17/25 01/17/25 03:43 05:59 06:32 Temperature 97.9 F Pulse Rate 66 89 58 L Respiratory 20 18 Rate Blood Pressure 185/90 188/110 148/73 O2 Sat by Pulse 96 Oximetry 01/17/25 09:41 Temperature Pulse Rate 57 L Respiratory 16 Rate Blood Pressure O2 Sat by Pulse 98 Oximetry Medical Decision Making - Lab Data Result diagrams: 01/17/25 04:41 01/17/25 06:39 <Timothy Benedict - Last Filed: 01/17/25 09:30> - Lab Data Result diagrams: 01/17/25 04:41 01/17/25 06:39 <Kinjal Gallegos - Last Filed: 01/21/25 12:18> - Medical Decision Making Patient care signed out to me by previous shift physician, Dr. Gallegos. Briefly, patient 64-year-old female presents with lower abdominal pain that radiates to the lower back. Plan at signout was to follow-up with pending metabolic panel. Clinical presentation consistent with UTI. Patient has no CVA pain. CT is unremarkable for any acute processes. Patient reevaluated bedside at 9:31 AM found to be stable to condition. Patient's symptoms likely secondary to cystitis. Patient 1 IV dose of ceftriaxone. Patient discharge told to follow-up with primary care doctor. Provided prescription for UTI (Timothy Benedict) Was pt. sent in by a medical professional or institution (Dr., PA, CHILDREN'S TUTOR, urgent care, hospital, or assisted...) When possible be specific @ -No Did you speak to anyone other than the patient for history (EMS, parent, family, police, friend...)? What history was obtained from this source @ -No Did you review nursing and triage notes (agree or disagree)? Why? @ -I reviewed and agree with nursing and triage notes Were old charts reviewed (outside hosp., previous admission, EMS record, old EKG, old radiological studies, urgent care reports/EKG's, assisted records)? Report findings @ -Medical records reviewed-Reviewed CT abdomen pelvis performed 12/20/2024, noted "densities within the inferior lingula... Thickening of the adrenal gland, stable calcified lesions within the liver.... Redemonstrated infrarenal AAA with occlusion, current caliber 4.5 cm versus 4 cm measured on 07/02/2023, distal perfusion from prominent inferior epigastric artery and abdominal wall collaterals... Bilateral nephrolithiasis measuring up to 1.1 cm and redemonstr ated left femoral head avascular necrosis without sub articular collapse" Differential Diagnosis (chest pain, altered mental status, abdominal pain women, abdominal pain men, vaginal bleeding, weakness, fever, dyspnea, syncope, headache, dizziness, GI bleed, back pain, seizure, CVA, palpatations, mental health, musculoskeletal)? @ -Differential Abdominal Pain Women: Appendicitis, Cholecystitis, diverticulosis, ischemic bowel, pancreatitis, hepatitis, UTI, gastroenteritis, AAA, incarcerated hernia, bowel obstruction, constipation, inflammatory bowel, hepatitis, peptic ulcer disease, splenic in farction, perforated viscus, vulvitis, ovarian torsion, PID, kidney stone, placenta abruption, this is not meant to be an all-inclusive list EKG interpreted by me (3pts min.). @ -As above X-rays interpreted by me (1pt min.). @ -None done CT interpreted by me (1pt min.). @Ending at time of signout U/S interpreted by me (1pt. min.). @ -None done What testing was considered but not performed or refused? (CT, X-rays, U/S, labs)? Why? @ -None What meds were considered but not given or refused? Why? @ -None Did you discuss the management of the patient with other professionals (professionals i.e. DrJuan, PA, CHILDREN'S TUTOR, lab, RT, psych nurse, marriage and family social worker, medical transcriber, teacher, contract officer, correctional casework specialist)? Give summary @ -No Was smoking cessation discussed for >3mins.? @ -No Was critical care preformed (if so, how long)? @ -No Were there social determinants of health that impacted care today? How? (Homeles sness, low income, unemployed, alcoholism, drug addiction, transportation, low edu. Level, literacy, decrease access to med. care, senior living, rehab)? @ -No Was there de-escalation of care discussed even if they declined (Discuss DNR or withdrawal of care, Hospice)? @ -No What co-morbidities impacted this encounter? (DM, HTN, Smoking, COPD, CAD, Cancer, CVA, ARF, Chemo, Hep., AIDS, mental health diagnosis, sleep apnea, morbid obesity)? @ -HTN Was patient admitted / discharged? Hospital course, mention meds given and route, prescriptions, significant lab abnormalities, going to OR and other pertinent info. Signed out to oncoming physician-Pt is a 64 y/o female presenting today for lower abdominal and low back pain. Pt appears somewhat uncomfortable on my assessment. Exam significant for bilateral LQ TTP and periumbilical TTP, - CVA TTP. Vitals on arrival significant for BP 185/90, I suspect this is at least partially 2/2 pain. Differential dx as noted above, top considerations include ureterolithiasis vs diverticulitis vs renal artery aneurysm, for that reason will obtain CT abdomen/pelvis w/ contrast, labs, UA.IV fluids and Pain control ordered. Pt agreeable with POC. BP did come down to 148/73 after pain meds. 7:00 AM- Pt signed out to Dr. Ortiz, pending CMP and CT. Please see his note for further details of care. (Kinjal Gallegos) - Lab Data Lab Results 01/17/25 01/17/25 01/17/25 Range/Units 04:41 04:41 04:41 WBC 10.74 H (4.50-10.00) 10*3/uL RBC 5.32 H (4.10-5.20) 10*6/uL Hgb 16.6 H (12.0-15.0) g/dL Hct 48.4 H (37.2-46.3) % MCV 91.0 (80.0-97.0) fL MCH 31.2 (27.0-32.0) pg MCHC 34.3 (32.0-37.0) g/dL Plt Count 152 (140-440) 10*3/uL MPV 10.5 (9.5-12.2) fL Immature Gran % (Auto) 0.4 % Neutrophils % 79.1 % Lymphocytes % 12.8 % Monocytes % 6.7 % Eosinophils % 0.6 % Basophils % 0.4 % Immature Gran # 0.04 (0.00-0.04) 10*3/uL Neutrophils # 8.51 H (1.80-7.70) 10*3/uL Lymphocytes # 1.37 (0.90-5.00) 10*3/uL Monocytes # 0.72 (0.20-1.00) 10*3/uL Eosinophils # 0.06 (0.04-0.35) 10*3/uL Basophils # 0.04 (0.00-0.10) 10*3/uL PT (10.0-12.5) sec INR (<1.2) APTT (22.0-30.0) sec Sodium (137-145) mmol/L Potassium (3.5-5.1) mmol/L Chloride (98-107) mmol/L Carbon Dioxide (22-30) mmol/L Anion Gap mmol/L BUN (7-17) mg/dL Creatinine (0.52-1.04) mg/dL Est GFR (CKD-EPI)AfAm (>60 ml/min/1.73 sqM) Est GFR (CKD-EPI)NonAf (>60 ml/min/1.73 sqM) Glucose (74-99) mg/dL Plasma Lactic Acid Jeevan 1.2 (0.7-2.0) mmol/L Calcium (8.4-10.2) mg/dL Total Bilirubin (0.2-1.3) mg/dL AST (14-36) U/L ALT (4-34) U/L Alkaline Phosphatase (38-126) U/L Total Protein (6.3-8.2) g/dL Albumin (3.5-5.0) g/dL Amylase (30-110) U/L Lipase (23-300) U/L Urine Color Yellow Urine Appearance Cloudy H (Clear) Urine pH 6.0 (5.0-8.0) Ur Specific Totz 1.018 (1.001-1.035) Urine Protein Trace H (Negative) Urine Glucose (UA) Negative (Negative) Urine Ketones 1+ H (Negative) Urine Blood Large H (Negative) Urine Nitrite Negative (Negative) Urine Bilirubin Negative (Negative) Urine Urobilinogen 2.0 (<2.0) mg/dL Ur Leukocyte Esterase Large H (Negative) Urine RBC 17 H (0-5) /hpf Urine WBC 112 H (0-5) /hpf Ur Squamous Epith Cells 3 (0-4) /hpf Urine Bacteria Rare H (None) /hpf Urine Mucus Rare H (None) /hpf Blood Type Blood Type Recheck Bld Type Recheck Status Antibody Screen Spec Expiration Date 01/17/25 01/17/25 01/17/25 Range/Units 04:55 06:39 06:39 WBC (4.50-10.00) 10*3/uL RBC (4.10-5.20) 10*6/uL Hgb (12.0-15.0) g/dL Hct (37.2-46.3) % MCV (80.0-97.0) fL MCH (27.0-32.0) pg MCHC (32.0-37.0) g/dL Plt Count (140-440) 10*3/uL MPV (9.5-12.2) fL Immature Gran % (Auto) % Neutrophils % % Lymphocytes % % Monocytes % % Eosinophils % % Basophils % % Immature Gran # (0.00-0.04) 10*3/uL Neutrophils # (1.80-7.70) 10*3/uL Lymphocytes # (0.90-5.00) 10*3/uL Monocytes # (0.20-1.00) 10*3/uL Eosinophils # (0.04-0.35) 10*3/uL Basophils # (0.00-0.10) 10*3/uL PT 10.4 (10.0-12.5) sec INR 0.9 (<1.2) APTT 20.1 L (22.0-30.0) sec Sodium 140 (137-145) mmol/L Potassium 4.2 (3.5-5.1) mmol/L Chloride 108 H (98-107) mmol/L Carbon Dioxide 25 (22-30) mmol/L Anion Gap 7 mmol/L BUN 9 (7-17) mg/dL Creatinine 0.54 (0.52-1.04) mg/dL Est GFR (CKD-EPI)AfAm >90 (>60 ml/min/1.73 sqM) Est GFR (CKD-EPI)NonAf >90 (>60 ml/min/1.73 sqM) Glucose 88 (74-99) mg/dL Plasma Lactic Acid Jeevan (0.7-2.0) mmol/L Calcium 8.5 (8.4-10.2) mg/dL Total Bilirubin 1.0 (0.2-1.3) mg/dL AST 26 (14-36) U/L ALT 12 (4-34) U/L Alkaline Phosphatase 74 (38-126) U/L Total Protein 6.4 (6.3-8.2) g/dL Albumin 3.6 (3.5-5.0) g/dL Amylase 49 (30-110) U/L Lipase 50 (23-300) U/L Urine Color Urine Appearance (Clear) Urine pH (5.0-8.0) Ur Specific Totz (1.001-1.035) Urine Protein (Negative) Urine Glucose (UA) (Negative) Urine Ketones (Negative) Urine Blood (Negative) Urine Nitrite (Negative) Urine Bilirubin (Negative) Urine Urobilinogen (<2.0) mg/dL Ur Leukocyte Esterase (Negative) Urine RBC (0-5) /hpf Urine WBC (0-5) /hpf Ur Squamous Epith Cells (0-4) /hpf Urine Bacteria (None) /hpf Urine Mucus (None) /hpf Blood Type O Positive Blood Type Recheck O Pos Bld Type Recheck Status No Antibody Screen NEGATIVE Spec Expiration Date 01/20/20252338 Disposition Is patient prescribed a controlled substance at d/c from ED?: Yes Time of Disposition: 09:33 <Timothy Benedict - Last Filed: 01/17/25 09:30> <Kinjal Gallegos - Last Filed: 01/21/25 12:18> Clinical Impression: UTI (urinary tract infection) Disposition: HOME SELF-CARE Condition: Fair Instructions (If sedation given, give patient instructions): Urinary Tract Infection in Women (ED) Prescriptions: Cephalexin [Keflex] 500 mg PO Q12HR 7 Days #14 cap HYDROcodone/APAP 5-325MG [Lagrange 5-325] 1 tab PO Q6HR PRN 3 Days #12 tab PRN Reason: Severe Pain Referrals: Nicole Abreu DO [Primary Care Provider] - 1-2 days
[2025-01-17 04:51] LABS: Basophils # (A) 0.04 10*3/uL (0.00-0.10); Basophils % (A) 0.4 %; Eosinophils # (A) 0.06 10*3/uL (0.04-0.35); Eosinophils % (A) 0.6 %; HCT 48.4 % (37.2-46.3); HGB 16.6 g/dL (12.0-15.0); Lymphocytes # (A) 1.37 10*3/uL (0.90-5.00); Lymphocytes % (A) 12.8 %; MCH 31.2 pg (27.0-32.0); MCHC 34.3 g/dL (32.0-37.0); Mean Platelet Volume 10.5 fL (9.5-12.2); Monocytes # (A) 0.72 10*3/uL (0.20-1.00); Monocytes % (A) 6.7 %; Neutrophils # (A) 8.51 10*3/uL (1.80-7.70); Neutrophils % (A) 79.1 %; Platelet Count 152 10*3/uL (140-440); RBC 5.32 10*6/uL (4.10-5.20); RDW 12.5 % (11.5-14.5); WBC 10.74 10*3/uL (4.50-10.00)
[2025-01-17] MEDS: SODIUM CHLORIDE 0.9% 1,000 ML IV ONE (05:00)
[2025-01-17] MEDS: MORPHINE SULFATE 4 MG/ML SYRINGE IVP STA (05:01)
[2025-01-17] MEDS: ONDANSETRON 4 MG/2 ML VIAL IVP STA (05:01)
[2025-01-17 06:14] LABS: INR 0.9 (<1.2); Prothrombin Time 10.4 sec (10.0-12.5)
[2025-01-17 06:25] LABS: Appearance,Urine Cloudy (Clear); Bacteria,Urine Rare /hpf; Bilirubin,Urine Negative (Negative); Blood,Urine Large (Negative); Color,Urine Yellow; Glucose,Urine (UA) Negative (Negative); Ketones,Urine 1+ (Negative); Leukocyte Esterase,Urine Large (Negative); Mucus,Urine Rare /hpf; Nitrite,Urine Negative (Negative); Protein,Urine Trace (Negative); RBC,Urine 17 /hpf (0-5); Specific Gravity,Urine 1.018 (1.001-1.035); Squamous Epithelial Cell,Urine 3 /hpf (0-4); WBC,Urine 112 /hpf (0-5)
[2025-01-17 06:31] LABS: Partial Thromboplastin Time 20.1 sec (22.0-30.0)
[2025-01-17 06:39] VITALS: BP 148/73
[2025-01-17 07:23] LABS: ALT 12 U/L (4-34); African American GFR (CKD) >90 (>60 ml/min/1.73 sqM); Albumin 3.6 g/dL (3.5-5.0); Amylase 49 U/L (30-110); Anion Gap 7 mmol/L; Blood Urea Nitrogen 9 mg/dL (7-17); Calcium 8.5 mg/dL (8.4-10.2); Carbon Dioxide 25 mmol/L (22-30); Chloride 108 mmol/L (98-107); Glucose 88 mg/dL (74-99); Lipase 50 U/L (23-300); Non-African American GFR(CKD) >90 (>60 ml/min/1.73 sqM); Sodium 140 mmol/L (137-145); Total Protein 6.4 g/dL (6.3-8.2)
[2025-01-17 07:25] LABS: AST 26 U/L (14-36); Alkaline Phosphatase 74 U/L (38-126); Potassium 4.2 mmol/L (3.5-5.1)
[2025-01-17] MEDS: cefTRIAXone IN SWFI 1,000 MG/10 ML SYRINGE IVP STA (07:26)
--- NOTE | 2025-01-17 08:21 | CT ---
EXAMINATION TYPE: CT abdomen pelvis w con DATE OF EXAM: 01/17/2025 7:43 AM COMPARISON: None. CLINICAL INDICATION: Female, 64 years old with history of diffuse low ab pain, ABD PAIN TECHNIQUE: Axial images were obtained from above the diaphragm to the pubic rami in the axial plane a t 5 mm thick sections. Reconstructed images are reviewed on the computer in the coronal plane. CONTRAST: 100 mL of Isovue 300. Study performed without Oral Contrast DLP: 497.6 mGycm, Automated exposure control for dose reduction was used. FINDINGS: Limited CT sections are obtained the lung bases. Calcification posterior lateral right lung base. Ca lcification above the left diaphragm. Couple of additional calcifications within the posterior medial right lung sulcus. CT ABDOMEN: Liver: There are coarse calcifications within the liver. Spleen: Multiple scattered granuloma within the spleen Pancreas: Normal Adrenal glands: The adrenal glands are normal. Gallbladder: Surgically absent Kidneys: No masses are evident. No hydronephrosis is present. No cysts are present. Bilateral nonobstructing renal stones Aorta: Vascular calcifications within the aorta. Aneurysmal dilatation is present with AP diameter of 4.9 cm. Contrast extends to the celiac, superior mesenteric, bilateral renal arteries. Thrombus fill s the aneurysm and there is obstruction of the aorta below the renal artery level. Femoral arteries a ppear to be reconstituted bilaterally. Findings are stable from 12/20/2004 comparison Inferior vena cava: Normal. CT PELVIS: Loops of bowel within the abdomen and pelvis are normal. Study is without oral contrast limits maikel wel evaluation Appendix: Not identified. No dilated tubular structure or inflammatory changes Urinary bladder: Normal. Genitourinary structures: Uterus and ovaries are identified. Osseous structures: No suspicious lytic or sclerotic lesions. IMPRESSION: 1. Abdominal aortic aneurysm. 2. Obstruction of the aorta below the renal arteries. Collateral flow reconstitutes femoral arteries. 3. Nonobstructing bilateral renal stones [facility], , 01/17/2025 8:18 AM
[2025-01-17 09:45] VITALS: PULSE 57; RESP 16
== END 2025-01-17 10:20 | disposition home or self-care (01) ==
LOC: EC 03:42
DX: N39.0 Urinary tract infection, site not specified (principal); F17.200 Nicotine dependence, unspecified, uncomplicated; Z88.1 Allergy status to other antibiotic agents
CPT/HCPCS: 36415; 86900; 86901; 80053; 82150; 83605; 83690; 85025; 85610; 85730; 86850; 81001; 87086; 74177; 99285; 96374; 96375 ×2; 96361; J2270; J2405; J0696; Q9967